=== PATIENT | female | born 1960 | race Caucasian/White ===

== ENCOUNTER 2018-12-21 14:16 | Emergency (ER) | payer OTHER, BC, SELFPAY ==
[2018-12-21 14:17] VITALS: BP 164/71; PULSE 45; RESP 18; TEMP 36.4; O2SAT 99; BMI 37.9
--- NOTE | 2018-12-21 14:45 | RAD_ITS ---
STUDY: X-RAY - LEFT HAND REASON FOR EXAM: Female, 58 years old. Swelling, bruising and laceration. TECHNIQUE: 3 view(s) of the hand. COMPARISON: None. FINDINGS: Normal radiocarpal articulation. Normal distal radioulnar joint. Normal visualized carpal bones. Normal carpal articulations Normal carpometacarpal articulation of the thumb. Normal second through fifth carpometacarpal joints. Normal metacarpi. Normal metacarpophalangeal joint of the thumb. Normal interphalangeal joint of the thumb. Normal proximal and distal phalanges of the thumb. Normal metacarpophalangeal joints of the second through fifth fingers. Normal proximal and distal interphalangeal joints of the second through fifth fingers. Normal phalanges of the second through fifth fingers. Soft tissue swelling and laceration with air in the soft tissues between the second and third metacarpals. RAD/Hand Min 3 Views IMPRESSION: Soft tissue swelling with laceration and air in the soft tissues between the second and third metacarpals. No bony abnormality is seen. Electronically Signed: Osito Richter, at 15:19 EDT , Service support ,
--- NOTE | 2018-12-21 14:47 | ED.VISSUMM ---
- ER Visit Summary Date of Service: 12/21/18 Chief Complaint: Hand injury History of Present Illness: The patient is a 58 F with a crush injury to her left hand prior to arrival this is work-related. There is no other injury. Tetanus is not up-to-date. Physical Examination: Otherwise unremarkable exam, she has no shoulder elbow or wrist pain her pain is in the dorsum and volar part of her hand, there is quite a bit of swelling over the dorsum of the hand. There is a volar laceration that about 6 cm. Patient has strength and sensation distally. Positive radial pulses normal capillary reflexes. Emergency Department Course and Treatment: Antibiotics were given IV, tetanus was updated, we soaked the wound, x-ray does not show fracture, soft tissue swelling. I sutured the laceration patient was splinted volarly, I gave her a long cover so she can hang her hand up, I will place her antibiotics and she will follow-up with hand. She understands that if she has worsening pain, tingling in her fingers, loss of sensation in her fingers fevers or chills she needs to return right away. Disposition: Discharge stable condition Impression: crush injury left hand Laceration left hand 6 cm This note was generated with [employer] dictation software. It may contain incorrect words, spelling, and punctuation that were not noted in review of the chart prior to signing ED Disposition - Plan for ED Patient: Disposition: Home or Assisted Living Instructions: ED Crush Injury Hand Fing No Fx Ch Prescriptions: Oxycodone HCl/Acetaminophen [Percocet 5/325] 1 tab PO Q6H PRN PRN 3 Days #12 tab PRN Reason: Pain Clindamycin [Cleocin] 300 mg PO 4X/DAY #80 cap Referrals: Evan Peterson MD [STAFF PHYSICIAN] - Additional Instructions: Make sure you take all your antibiotics. Make sure you follow-up with plastic surgery. If you are unable return to the emergency department within the next 3 days. Take your splint off in 2 days and change your dressing please
[2018-12-21] MEDS: Diphth,Pertuss(Acell),Tet Vac 0.5 ML Vial IM (15:17)
[2018-12-21] MEDS: HYDROmorphone 1 MG/ML Syringe IV ×2 (15:17→18:05)
[2018-12-21 16:22] VITALS: RESP 16
[2018-12-21 18:19] VITALS: PULSE 84; RESP 18; O2SAT 98
== END 2018-12-21 18:51 | disposition home or self-care (01) ==
PROVIDERS: Emergency Provider Emergency Medicine; Family Provider Internal Medicine; PCP Internal Medicine
DX: S61.412A Laceration without foreign body of left hand, initial encounter (principal); Z23 Encounter for immunization; I10 Essential (primary) hypertension; Z79.82 Long term (current) use of aspirin; Z79.899 Other long term (current) drug therapy; X58.XXXA Exposure to other specified factors, initial encounter; Y93.89 Activity, other specified; Y92.89 Other specified places as the place of occurrence of the external cause; Y99.0 Civilian activity done for income or pay
CPT/HCPCS: 12002; 73130; 90715; 96365; 96375; 96376; 99285; J7040; A4216

== ENCOUNTER 2019-02-07 15:30 | Outpatient (RCR) | payer OTHER, SELFPAY ==
[2018-12-25 16:12] VITALS: BMI 38.5
[2019-01-03 16:11] VITALS: BMI 38.5
--- NOTE | 2019-01-09 09:21 | HP.OTEVAL_ITS ---
Patient's Visit Information MAKI KOLB is a 58 year old F, referred to Occupational Therapy by Evan Peterson MD, with a diagnosis of left hand crush injury. Date of Evaluation: 01/08/19 Occupational Therapist: Vonnie Goel, EVA/Ce, CHT - Subjective Subjective: This 58 year old female was seen for initial OT eval on . Pt states on 12/21/18 she suffered a left handcrush injury laceration left palm that she sustained at work at [employer]. X-ray was negative for fracture. In the ER pt states the laceration was suture. Her range of motion was intact and there were no sensory deficits. She presents today for further evaluation and treatment. 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 Patient is right hand dominant. 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 pt states she is having difficulty with making a fist and one painful spot in the palm of her hand. - Pain left hand 3 Pain Intensity Range: 0, 6 - ROM ROM Comments: left MCP of IF 65 PIP 80 DIP 40 right MCP 70 PIP 105 DIP 55. left MCP of MF 70 pip 70 DIP 40 right MCP 75 PIP 105 DIP 55. 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 Pt will demo an increase in lateral and tripod pinch by 4# to increase pts independent with opening baggies, containers at PLOF by D/C. Goal:: Pt will demo the ability to form a composite fist indicating full gain of digit MCP, PIP and DIP flexion to return to performing BADLs and IADLS at PLOF by d/c. Goal:: Pt will report pain no greater than 1/10 with use of affected hand with BADLs and IADLs by d/c. Goal:: pt demo with scar hypersensitivity limiting ind. use of left hand for daily occupation, pt will demo understanding of desensitization by end of 2nd session to decrease sesitivity and return to use at [facility]. - Rehabilitation General Assessment: Pt presents with limited ability to form a composite fist, left hand weakness and decreased ind. with use of left hand with ADLs, IADLs and work tasks. Pt would benefit from skilled OT services 2-3 xweek for 4 weeks to ensure full gains in pts ROM and return of her strength. Today pt was ed. and given handouts on ROM, scar mtg, and desensitization. pt demo understanding and agree to POC. Rehabilitation Potential: Good - Anticipated Interventions Anticipated Interventions: A/AAROM/PROM, Strengthening, Scar Care, Triggerpoint Release, Desensitization, Modalities, Joint Protection/Energy Conservation, Ergonomic Education - Visit Plan Frequency: 2-3x /Week Duration: 4 Weeks TEXT: Thank you for the opportunity to evaluate your patient. For Medicare and Medicare HMO plans, please review the plan of care and approve it. It will need to be FAXED BACK to us at [phone] for Medicare purposes. Please let me know if there are questions or concerns regarding this plan of care. Physician Signature: Date:
--- NOTE | 2019-04-17 10:04 | HP.OT.NRP ---
HP - Discharge Summary - Patient Information MAKI KOLB was seen in my office for initial evaluation on 01/08/19. The following Plan of Care was established for this patient: Initial Frequency: 2-3x /Week Initial Duration: 4 Weeks Plan: cont with PRE check ROM and strength - Anticipated Interventions Anticipated Interventions: A/AAROM/PROM, Strengthening, Scar Care, Triggerpoint Release, Desensitization, Modalities, Joint Protection/Energy Conservation, Ergonomic Education This patient was last seen in our office 02/07/19. Pertinent comments regarding their Occupational therapy will appear below: pt was seen for 3 OT visits- pt returns with new order- therapy d/c this chart At this point I will be discontinuing this patient from occupational therapy. I would be happy to see this patient again in the future if found appropriate by the physician. Thank you! Vonnie Goel, OTR/L, CHT
== END 2019-02-07 19:00 | disposition home or self-care (01) ==
LOC: OT 15:30
PROVIDERS: Family Provider Internal Medicine; PCP Internal Medicine; Referring Provider Surgery; Visit Provider Surgery
DX: S61.412D Laceration without foreign body of left hand, subsequent encounter (principal); S67.22XD Crushing injury of left hand, subsequent encounter; M79.89 Other specified soft tissue disorders
CPT/HCPCS: 97035; 97110; 97140; 97166; 97530

== ENCOUNTER 2019-02-12 12:09 | Emergency (ER) | payer OTHER, BC, SELFPAY ==
[2019-01-18 16:19] VITALS: BMI 38.5
[2019-02-12 12:12] VITALS: BP 156/95; PULSE 60; RESP 16; TEMP 36.6; O2SAT 97; BMI 38.0
--- NOTE | 2019-02-12 12:28 | ED.VIS.GEN ---
History of Present Illness Chief Complaint: Upper Extremity Injury Informant: Patient Onset: Today Timing: Continuous Current Severity: Moderate Maximum Severity: Moderate Narrative: Patient presents with left hand injury after crush injury at work. I saw this patient for similar symptoms a month and a half ago. She was working on a machine and sustained a crush injury he denies any other injury. Pain is mild to moderate achy, she sustained a laceration. Past Medical History - Allergies and Home Meds Allergies/Adverse Reactions: Allergies bacitracin Allergy (Verified 02/12/19 12:11) Hives ondansetron HCl [From Zofran (as hydrochloride)] Allergy (Verified 02/12/19 12:11) Other povidone-iodine [From Betadine] Allergy (Verified 02/12/19 12:11) Hives soap [From Betadine] Allergy (Verified 02/12/19 12:11) Hives ciprofloxacin Adverse Reaction (Severe, Verified 02/12/19 12:11) Vomiting promethazine [From Phenergan] Adverse Reaction (Severe, Verified 02/12/19 12:11) Vomiting cephalexin monohydrate [From Keflex] Adverse Reaction (Verified 02/12/19 12:11) Nausea morphine Adverse Reaction (Verified 02/12/19 12:11) Vomiting Penicillins Adverse Reaction (Verified 02/12/19 12:11) Vomiting Primary Care Physician: Wendy Amaro MD [Primary Care Provider] - Past Medical History: - - Depression, anxiety, insomnia, neuropathy Smoking Status: Former smoker Review of Systems General: Denies: Fever Skin: Reports: Wounds Neurological: Denies: Weakness, Parasthesia Hematologic: Denies: Easy bruising, Easy bleeding Physical Exam Vital Signs/Narrative: Vital Signs Temp Pulse Resp BP Pulse Ox 02/12/19 12:12 97.8 F 60 26 H 156/95 H 97 Inital Vital Signs reviewed: Yes General: Well nourished, Well developed Head: Normocephalic Respiratory: No distress Back: Nontender, Normal Inspection Extremities: - - There is tenderness and swelling over the third and fourth digit, a 6 cm vertical laceration over the side of the third digit is present. Normal tendon function. Normal flexion extension. No significant edema. Skin: - - Laceration as above Neurological: Alert, Normal Sensation. Negative for: Weakness Diagnostic/Tx/Re-eval Impressions Hand X-Ray 02/12/19 12:45 IMPRESSION: Nondisplaced fractures involving the distal aspect of the distal phalanx of the index finger as well as the middle phalanx and distal phalanx of the third digit with soft tissue swelling and laceration. Electronically Signed: Osito Richter, at 13:04 EDT , Service support , 02/12/19 12:45 Hand Min 3 Views [RAD] Stat - Medical Decision Making I discussed the patient with plastics, she has an open fracture, this was sutured see procedure note a splint was placed. Patient will be given antibiotics and followed up in 1 to 2 days. It is difficult for me to establish if the flexor function is fully intact. Procedures - Lacerations No standard instances Depth: Skin Shape: Linear Prep: Sterile Conditions, Esther-Nabor Laceration repair: Lidocaine, Local Number of Sutures/Wes: 4 Suture Information: 5-0 - Lower Extremity Splints Lower Extremity Splint: Orthoglass Splint Fabrication: Pre-fabricated Location: Right ED Disposition - Plan for ED Patient: Disposition: Home or Assisted Living Diagnosis: Laceration of left palm, Open fracture Instructions: FRACTURE, Finger (Open) Prescriptions: Clindamycin [Cleocin] 300 mg PO 4X/DAY #80 cap Prescription Printed Oxycodone HCl/Acetaminophen [Percocet 5/325] 1 tab PO Q6H PRN PRN 3 Days #12 tab PRN Reason: Pain Prescription Printed Referrals: Evan Peterson MD [STAFF PHYSICIAN] - 2 Days
[2019-02-12] MEDS: oxyCODONE 5 MG Tablet PO (12:35)
--- NOTE | 2019-02-12 12:45 | RAD_ITS ---
STUDY: X-RAY - LEFT HAND REASON FOR EXAM: Female, 58 years old. Lacerations of the second third and fourth digits. TECHNIQUE: 3 view(s) of the hand. COMPARISON: None. FINDINGS: Normal radiocarpal articulation. Normal distal radioulnar joint. Normal visualized carpal bones. Normal carpal articulations Normal carpometacarpal articulation of the thumb. Normal second through fifth carpometacarpal joints. Normal metacarpi. Normal metacarpophalangeal joint of the thumb. Normal interphalangeal joint of the thumb. Normal proximal and distal phalanges of the thumb. Normal metacarpophalangeal joints of the second through fifth fingers. Normal proximal and distal interphalangeal joints of the second through fifth fingers. Nondisplaced comminuted fractures involving the distal pharynx of the index finger. Nondisplaced vertical fracture through the middle phalanx of the third digit as well as a fracture through the tuft of the distal phalanx of the fourth digit. Soft tissue lacerations of the second and third digits. RAD/Hand Min 3 Views IMPRESSION: Nondisplaced fractures involving the distal aspect of the distal phalanx of the index finger as well as the middle phalanx and distal phalanx of the third digit with soft tissue swelling and laceration. Electronically Signed: Osito Richter, at 13:04 EDT , Service support ,
[2019-02-12 14:10] VITALS: RESP 18
== END 2019-02-12 15:32 | disposition home or self-care (01) ==
PROVIDERS: Emergency Provider Emergency Medicine; Family Provider Internal Medicine; PCP Internal Medicine
DX: S62.662B Nondisplaced fracture of distal phalanx of right middle finger, initial encounter for open fracture (principal); S62.652B Nondisplaced fracture of middle phalanx of right middle finger, initial encounter for open fracture; S62.660A Nondisplaced fracture of distal phalanx of right index finger, initial encounter for closed fracture; Z87.891 Personal history of nicotine dependence; F32.9 Major depressive disorder, single episode, unspecified; F41.9 Anxiety disorder, unspecified; Z79.899 Other long term (current) drug therapy; W31.9XXA Contact with unspecified machinery, initial encounter; Y93.89 Activity, other specified; Y92.89 Other specified places as the place of occurrence of the external cause; Y99.0 Civilian activity done for income or pay
CPT/HCPCS: 12002; 73130; 96372; 99284

== ENCOUNTER 2019-02-16 10:20 | Day surgery (SDC) | payer OTHER, SELFPAY ==
[2019-02-14 10:04] VITALS: BMI 38.0
--- NOTE | 2019-02-15 23:54 | HP.PCM_ITS ---
History and Physical Date of Admission: 02/16/19 HISTORY OF PRESENT ILLNESS 58 year old woman presented to the ED on 02/12/19 with a crush injury left hand that she sustained at work at [employer]. This is her second crush injury at work. The first one occurred on 12/21/18. She was able to return to work on 01/22/19. When she went to ED on 02/12/19, an x-ray showed nondisplaced fractures involving the distal aspect of the distal phalanx of the index finger as well as the middle phalanx and distal phalanx of the third digit with soft tissue swelling and laceration. There was a longitudinal laceration on the volar surface long finger that was cleansed and suture repaired. Her range of motion in her index finger and long finger were limited secondary to pain and swelling. She complains of some tingling in the long finger. Her fingers were wrapped and the left hand was splinted. She was discharged home on Cleocin antibiotics and Percocet for pain. She presents today for further evaluation and treatment. Patient is right hand dominant. PAST MEDICAL HISTORY Anxiety and depression Arthritis Asthma Back problem Frequent headaches Osteoarthritis Vision problems High blood pressure PAST SURGICAL HISTORY hysterectomy ALLERGIES bacitracin ondansetron HCl [From Zofran (as hydrochloride)] povidone-iodine [From Betadine] soap [From Betadine] ciprofloxacin promethazine [From Phenergan] cephalexin monohydrate [From Keflex] morphine Penicillins MEDICATIONS Aspirin [Aspirin, Baby] Citalopram [Celexa] Gabapentin [Neurontin] Metoprolol Tartrate [Lopressor (Beta Roberto)] Pramipexole Di-HCl [Mirapex] Quetiapine Fumarate [Seroquel] Meclizine HCl [Antivert] Clindamycin [Cleocin] Naproxen [Naprosyn] Oxycodone HCl/Acetaminophen [Percocet 5/325] traZODone [Desyrel] oxycodone-acetaminophen FAMILY HISTORY Father - Arthritis, Hypertension, Kidney disease, Seizures, CVA (cerebral vascular accident), Heart disease SOCIAL HISTORY Smoking Status: Former smoker alcohol intake: current substance use type: does not use REVIEW OF SYSTEMS General - Denies fever, fatigue, and weight loss. Eyes - Denies cataracts and glaucoma. ENT - Denies nasal congestion and sore throat. Endocrine - Denies excessive thirst and urination. Skin - Denies suspicious lesions and skin cancer. Has bruising tendency. Musculoskeletal - Has joint pain, joint stiffness, back pain, and arthritis. Denies weakness of muscles and joints. Neuro - Has headaches. Cardiovascular - Denies chest pain, fatigue, and shortness of breath with exertion. Psych - Denies anxiety. Has depression. Has claustrophobia. Respiratory - Denies chronic cough and shortness of breath. Has asthma. Gastrointestinal - Denies nausea, vomiting, diarrhea, and constipation. Hematologic - Denies abnormal bruising and bleeding. Genitourinary - Denies hematuria and urinary frequency. PHYSICAL EXAMINATION General - Alert and Oriented HEENT - PERRL. EOMI. Throat is clear. Neck - Supple and nontender. No cervical adenopathy. Lungs - Clear to auscultation. Heart - Regular rate and rhythm. Abdomen - Soft and nondistended. Extremities - FROM right upper extremity. No axillary adenopathy. Radial pulses are palpable. Fingers are warm with good capillary refill. She is right hand dominant. On the left hand was a 5 cm longitudinal laceration on the volar radial aspect of the long finger extending from the distal phalanx to just proximal to the PIP joint crease. It was suture repaired. Tenderness to palpation. Mild swelling present. Has difficulty flexing the long finger at the DIP and PIP joints secondary to pain and swelling and recent bone fractures. This is an open fracture. Also has difficulty flexing the index finger at the DIP and PIP joints secondary to pain and swelling and recent bone fracture. There was a wound at the base of the nail plate in the eponychial fold thus making this an open fracture. On the dorsum of the left long finger extending obliquely toward the radial side of the finger is a superficial laceration. Measures 1.5 cm. It was not suture repaired in the ED. Some sensory deficits to pinprick on the left long finger. No sensory deficits noted on the left index finger. Extension is limited secondary to pain and swelling. Palm is nontender. Neuro - CN II-XII grossly intact. Psych - Normal mood and affect. ASSESSMENT 1. Crush injury left hand. 2. 5 cm longitudinal laceration volar radial aspect long finger extending from the distal phalanx to just proximal to the PIP joint crease. 3. Superficial 1.5 cm laceration dorsum left long finger just proximal to the eponychial fold and extending obliquely and radial. 4. Nondisplaced open fracture left long finger involving distal phalanx and middle phalanx. 5. Nondisplaced open fracture left index finger involving distal phalanx. 6. Possible digital nerve injury left long finger. 7. Possible flexor tendon injury left long finger. 8. Nail bed injury left index finger. 9. Finger swelling left hand involving long finger and index finger. 10. Crush injury left hand. PLAN Continue antibiotics with Cleocin. At the time of surgery, may change to Doxycy lang because of risk of osteomyelitis. Recommend operative intervention with exploration of the laceration left long finger and the nail bed injury left index finger. Suspect flexor tendon injury, digital nerve injury along with associated nondisplaced fractures distal phalanx and middle phalanx left long finger and distal phalanx left index finger. If injuries are present, I may need to extend the wound in a zig zag fashion both proximally and distally. With the longitudinal nature of the wound, she is at risk of developing a scar contracture that may necessitate surgical preparation of the long finger with excision of the scar contracture with multiple z-plasty and/or skin graft reconstruction. Suspect a nail bed injury left index finger that will be repaired. I will have access to the distal phalanx fracture which involves the distal portion of the bone. Excision of these fracture fragments and sent to Pathology for analysis to rule out osteomyelitis and to Microbiology for culture. A positive culture may necessitate antibiotic therapy. I should be able to have acces to the distal phalanx fracture of the long finger as well. Will excise these fracture fragments as well to evaluate for osteomyelitis. Leaving the bony fragments, increases the risk of developing chronic bone pain in the future that may necessitate excision at that time and possible tip amputation. Postoperatively, will have the fingers and hand splinted. Will also followup at OT for a silastic splint and after healing has occurred, range of motion exercises, strengthening, and edema management. For the bony fractures, especially the middle phalanx fracture, ORIF may be necessary with Kwire fixation or possibly plate and screw fixation. Surgery will be done under general anesthesia on an outpatient basis. Depending on the amount of pain she is having after surgery, she may need a surgical observation overnight stay in the hospital. Will schedule the surgery in the next 1-2 days. Keep left hand elevated. This complex injury occurred on 02/12/19. She did not go to work yesterday. Due to its complexity, she needs to be off work with total disability beginning the day of injury, 02/12/19, and extending to 05/08/19 (tentative). With the surgery taking place in the next 1-2 days, coupled with adequately healing and subsequent OT for range of motion exercises, strengthening, and edema manage ment, her recovery will be prolonged. 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 She will not go back to those machines. At the appropriate time, she will need to find alternate work within the company that doesn't involve machinery. Patient was informed of the risks and complications of the procedure including alternatives to surgery. These were discussed with the patient personally. Patient voices understanding and wishes to proceed. Some of the risks and complications were included in a form from the [employer]. Some of the risks and complications that were discussed included but were not inclusive of failure to diagnose including symptom relief, pain, infection, numbness, stiffness, loss of digit, RSD (CRPS), need for further surgery, contracture, and wound healing problems. I discussed with the patient that because this is a crush injury, sometimes problems occur later on down the road in 6-12 months such as stiffness, pain, swelling, and range of motion issues that may necessitate operative intervention and release of scar tissue such as tenolysis and/or neurolysis. She voices understanding. She also understands that depending on the healing, she may end up eventually with an amputation of her finger(s). Renewed her Percocet for pain (30 tabs), to be dispensed 02/15/19. Followup after her surgery.
--- NOTE | 2019-02-16 10:33 | EKG12_ITS ---
Test Reason : PREOP Blood Pressure : / mmHG Vent. Rate : 054 BPM Atrial Rate : 054 BPM P-R Int : 144 ms QRS Dur : 086 ms QT Int : 460 ms P-R-T Axes : 041 -01 -06 degrees QTc Int : 436 ms Sinus bradycardia Otherwise normal ECG When compared with ECG of 16-JUL-2015 12:59, Premature ventricular complexes are no longer Present Inverted T waves have replaced nonspecific T wave abnormality in Inferior leads Nonspecific T wave abnormality now evident in Anterior leads Confirmed by AKSHAT STOUT, AYLA ([id number]), dictionary editor ROSALIND PERALES ([id number]) on 02/23/2019 2:06:31 PM Referred By: Evan Peterson Confirmed By:ANDRIA ODEN MD
[2019-02-16 10:42] VITALS: BP 138/82; PULSE 56; RESP 16; TEMP 36.4; O2SAT 99; BMI 37.8
--- NOTE | 2019-02-16 14:00 | BON_PTH ---
PATIENT: MAKI KOLB LOC: [facility] [place] U#:[id number] AGE/SX: 58/F ROOM: RE02/16/[address]: Dr. Evan Peterson MD : 1960 BED: DIS: 02/16/2019 SPEC #: [id number] RECD: 02/16/19 16:08 STATUS: LU LEIGHTON #: [id number] REYNALDO: 02/16/19 14:[address]: Evan Peterson DEPT: SURGICAL PATHOLOGY RECD BY: José Miguel Reyes ENTERED: 02/19/19 08:46 SP TYPE: Bone OTHR DR: Dr. Wendy Amaro MD Tissues: A - Bone of hand, NOS B - Bone of hand, NOS Procedures: Decalcification bone/plaque Surgery Specimen Level IV HEADER OPERATION: Exploration laceration long finger, complex closure repair PRE-OP DIAGNOSIS: Crush injury left hand TISSUE SUBMITTED: A. Left long finger bone, B. Left index finger bone MICROSCOPIC DIAGNOSIS A. 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 See comment. B. Left index finger bone, biopsy: Reparative and reactive change. See comment. AM:aurora 02/22/19 COMMENT A & B. There is no evidence of osteomyelitis. Clinical correlation is suggested. MICROSCOPIC DESCRIPTION Slides are reviewed. GROSS DESCRIPTION A - Received in fixative is one container labeled with the patient's name and designated left long finger bone. The specimen consists of a piece of bone measuring 0.5 x 0.4 x 0.3 cm. The entire specimen is submitted in one cassette after decalcification. B - Received in fixative is one container labeled with the patient's name and designated left index finger bone. The specimen consists of two pieces of bone measuring in aggregate 1 x 0.7 x 0.4 cm. The entire specimen is submitted in one cassette after decalcification. / SJ:aurora 02/19/19 TC:5 CPT: 75971 x2, 96731 x2
[2019-02-16] MEDS: Mupirocin Ointment 22gm Tube 1 APPLIC (15:03)
[2019-02-16 15:16] VITALS: BP 121/62; BP 138/83; PULSE 60; RESP 16; TEMP 36.3; O2SAT 95
--- NOTE | 2019-02-16 15:27 | OP.PCM_ITS ---
Report of Operation Date of Procedure: 02/16/19 Pre-Operative Diagnosis: 1. Crush injury left hand. 2. 5 cm longitudinal laceration volar radial aspect long finger extending from the distal phalanx to just proximal to the PIP joint crease. 3. Superficial 1.5 cm laceration dorsum left long finger just proximal to the eponychial fold and extending obliquely and radial. 4. Nondisplaced open fracture left long finger involving distal phalanx and middle phalanx. 5. Nondisplaced open fracture left index finger involving distal phalanx. 6. Possible digital nerve injury left long finger. 7. Possible flexor tendon injury left long finger. 8. Nail bed injury left index finger. 9. Finger swelling left hand involving long finger and index finger. Post-Operative Diagnosis: 1. Crush injury left hand. 2. 5 cm longitudinal laceration volar radial aspect long finger extending from the distal phalanx to just proximal to the PIP joint crease. 3. 1.5 cm laceration dorsum left long finger just proximal to the eponychial fold and extending obliquely and radial. 4. Nondisplaced open fracture left long finger involving distal phalanx and middle phalanx. 5. Nondisplaced open fracture left index finger involving distal phalanx. 6. Nail bed injury left index finger. 7. Finger swelling left hand involving long finger and index finger. Surgery/Procedure Performed:: 1. Exploration 5 cm longitudinal laceration volar radial aspect left long finger extending from the distal phalanx to just proximal to the PIP joint crease with 4.5 cm complex closure repair and FTSG reconstruction from the volar ulnar forearm (2.5 cm2). 2. Exploration 1.5 cm laceration dorsum left long finger just proximal to the eponychial fold and extending obliquely and radial with 3.5 cm complex closure repair. 3. Excisional debridement open fracture distal phalanx tuft left long finger with partial ostectomy for osteomyelitis. 4. Treatment nondisplaced stable longitudinal open fracture middle phalanx left long finger without manipulation and with volar immobilization splinting. 5. Excisional debridement open fracture distal phalanx tuft left index finger with partial ostectomy for osteomyelitis. 6. Repair nail bed injury left index finger. Description of Surgical Findings:: 58 year old woman presented to the ED on 02/12/19 with a crush injury left hand that she sustained at work at [employer]. This is her second crush injury at work. The first one occurred on 12/21/18. She was able to return to work on 01/22/19. When she went to ED on 02/12/19, an x-ray showed nondisplaced fractures involving the distal aspect of the distal phalanx of the index finger as well as the middle phalanx and distal phalanx of the third digit with soft tissue swelling and laceration. There was a longitudinal laceration on the volar surface long finger that was cleansed and suture repaired. Her range of motion in her index finger and long finger were limited secondary to pain and swelling. She complains of some tingling in the long finger. Her fingers were wrapped and the left hand was splinted. She was discharged home on Cleocin antibiotics and Percocet for pain. Patient is right hand dominant. Patient was informed of the risks and complications of the procedure including alternatives to surgery. These were discussed with the patient personally. Patient voices understanding and wishes to proceed. Some of the risks and complications were included in a form from the [employer]. Some of the risks and complications that were discussed included but were not inclusive of failure to diagnose including symptom relief, pain, infection, numbness, stiffness, loss of digit, RSD (CRPS), need for further surgery, contracture, and wound healing problems. Total tourniquet time - 109 minutes. Size of skin graft volar aspect left long finger - 2.5 x 1 cm. The flexor tendons left long finger were intact. The extensor tendon left long finger was intact. The digital nerves left long finger were intact. abrading machine tender: None Type of Anesthesia:: General Specimen's removed: 1. Soft tissue left index finger to Microbiology. 2. Bone left index finger to Pathology and Microbiology. 3. Soft tissue left long finger to Microbiology. 4. Bone left long finger to Pathology and Microbiology. Drains: None. Estimated Blood Loss (mL): 50 ml. Description of Procedure: Patient was taken to OR in supine position and was placed under general anes thesia. The left upper extremity was prepped and draped in the usual fashion. SCD's were placed for DVT prophylaxis. Perioperative antibiotics were given intravenously. I then elevated the left upper extremity and applied an Esmarch bandage. The tourniquet was elevated to 250 mmHg. Using xylocaine with epinephrine, a digital metacarpal block was infiltrated to both the index and long fingers. After waiting 5 minutes for the anesthetic to take effect, I explored the injuries under loupe magnification. I extended the lacerations on the volar surface and dorsal surface of the left long finger in a zig zag fashion both proximally and distally to get exposure of the tendons and nerves. The flexor tendons were intact. The extensor tendon was intact. The digital nerves were dissected free and were intact. Clinically the nondisplaced longitudinal fracture middle phalanx was stable when I applied pressure to the bone. No manipulation was necessary to reduce the fracture. Will stabilize the fracture with volar immobilization splinting at the end of the procedure. The distal phalanx fracture had loose fragments in the tuft area. The proximal portion of the distal phalanx was intact as the tendon insertions were intact. I sharply debrided the bony fragments with a partial ostectomy. I will send some of the bone to Pathology to evaluate for osteomyelitis and to Microbiology for culture. A positive culture will necessitate antibiotic therapy. The wounds were irrigated with saline. I then explored the left index finger. The injury was in the eponychial area. I removed the nail plate with an elevator. There was bruising on the nail bed with an associated nail bed injury. I made a longitudinal incision along the paronychial fold and elevated the nail bed flap off the distal phalanx. The proximal portion of the distal phalanx was intact as the tendon insertions were intact. The distal phalanx fracture had loose fragments in the tuft area. I thought the fragments were large enough for stabilization with a K-wire. So I used C-arm and tried placing a size 0.035 in K-wire longitudinally to stabilize the fracture fragment of the distal phalanx. The wire went through the DIP joint for joint stabilization during the healing process. When I viewed the image on the C-arm it was difficult to get a piece of middle phalanx to stabilize the DIP joint. When I tried to manipulate the K- wire in order to get the K-wire to enter the middle phalanx more centrally, the bony stabilization of the distal phalanx tuft fracture was suboptimal. The fragment was too small to get a good enough purchase of the bone to stabilize it and enter the middle phalanx centrally for joint stabilization. Therefore it was decided to forget the K-wire fixation and just debride the bony fragments as I did with the long finger distal phalanx tuft fracture. I dissected the bony fragments free and sharply debrided the bony fragments with a partial ostectomy. Some of the bone was sent to Pathology to evaluate for osteomyelitis and to Microbiology for culture. A positive culture will necessitate antibiotic therapy. The wounds were irrigated with saline. I then repaired the nail bed injury left index finger with 6-0 Vicryl interrupted sutures. I placed the nail plate back on the left index finger over the nail bed repair and secured the nail plate to the paronychial and eponychial and hyponychial edges with 5-0 Nylon simple interrupted sutures. I then released the tourniquet after 109 minutes. Hemostasis was obtained with gauze compression and elevation and electrocautery. I then closed the lacerations on the volar aspect and dorsal aspect of the left long finger with 5-0 Nylon vertical mattress interrupted and simple interrupted sutures. The length of the complex closure repair on the dorsal aspect of the left long finger was 3.5 cm. I could not close the laceration completely on the volar aspect of the left long finger because of swelling from the severe nature of the crush injury. I was able to close the proximal end and the distal end with 5-0 Nylon vertical mattress interrupted and simple interrupted sutures. The length of the complex closure repair on the volar aspect of the left long finger was 4.5 cm. The central aspect of the incision had a resultant wound that measures 2.5 x 1 cm or 2.5 cm2. I decided to skin graft this area by drawing a longitudinal ellipse on the volar ulnar forearm. Incision was made and dissection was carried into the subcutaneous tissue. I removed the subcutaneous tissue from the undersurface of the skin graft thus making it a full thickness skin graft. The skin graft was placed in saline. I excised some more subcutaneous tissue in the donor wound to aid in wound closure. Hemostasis was obtained with electrocautery. I closed the donor incision in a layered fashion with 5-0 Monocryl interrupted sutures for the deep dermis and subcutaneous tissue. The skin was approximated with 5-0 Nylon simple interrupted sutures. Antibiotic ointment was applied to the suture line followed by a gauze dressing. The full thickness skin graft was then placed on the wound defect volar aspect left long finger. It was secured to the skin edges with 5-0 Chromic simple interrupted sutures. 5-0 Chromic sutures were also used for central quilting stabilization. Antibiotic ointment was applied to the skin graft and the suture lines of the left long finger as well as the nail plate area left index finger followed by Xeroform gauze and 2x2 gauze followed by 2 inch Robert wrap for a compression dressing. I then placed a volar plaster splint to stabilize the middle phalanx nondisplaced fracture left long finger. The splint was placed so the wrist was dorsally extended and the MP joints were flexed and the IP joints were extended. The splint was secured with a compression LAUREN wrap. Patient tolerated the procedure well and was sent to PACU in satisfactory condition. Patient will be sent home on antibiotics and pain medication. She will keep her left hand elevated during the initial postop period. Patient will followup in a week for a skin graft check and wound check and for discussion of the Pathology report and the Microbiology report. A positive culture may necessitate antibiotic modification. The sutures will be removed in 2 weeks. She will go to OT for a silastic splint and eventual range of motion exercises, strengthening, and edema management. I discussed with the patient that recovery will be prolonged and I anticipate a return to work on 05/08/19 (tentative). Grafts/Implants Used: None. - Complications None. - Admit VTE Documentation VTE Present on Admission: No VTE Mechan Device Prophylaxis: SCD's VTE Pharm Prophylaxis ordered?: Yes Code Visit Surgery Charges CPT - 06488 ICD-10 - S61.213A, M79.89, S67.193A 73613 S61.213A, M79.89, S67.193A 24634 S61.213A, M79.89, S67.193A 81885 S62.663B, M79.89, S67.193A, S61.213A 96262 S62.653B, M79.89, S67.193A, S61.213A 25102 S69.92xA, M79.89, S67.191A, S62.661B 99787 S62.661B, M79.89, S67.191A, S69.92xA
[2019-02-16 15:30] VITALS: BP 128/73; BP 138/83; PULSE 62; RESP 16; O2SAT 95
--- NOTE | 2019-02-16 15:35 | DCINST_ITS ---
You will use the following diet at home:: No restrictions Discharge Activity: May not drive while taking narcotic pain medications., May Shower - wear plastic bag over left hand when showering. Return to work on:: 05/08/19 - tentative May shower in (days): 1 - wear plastic bag over left hand when showering. May resume sexual activity in: No Restrictions Weight Bearing Status: Weight bearing as tolerated Lifting Restrictions: no lfting with left hand. Keep extremity elevated above heart level: Left Arm Call your doctor if your incision/area has: Continuous Slow Oozing, Sudden Increased Bleeding, Increased Pain/ Swelling, Increased Redness, Foul Smelling Discharge, Swelling at the incision site Call your doctor if you observe: Fever of 101 or Higher, Coldness, Increased Pain, Shortness of breath, Chest pain, Calf discomfort, Uncontrolled pain Suture Line Care: - Change Dressing in (Days):: 7 - will change dressing in office. Cleanse incision/area with: - - wear plastic bag over left hand when showering. Additional Instructions: Patient has Clindamycin and Percocet at home that she will use. Allergies/Adverse Reactions: Allergies bacitracin Allergy (Verified 02/16/19 10:40) Hives latex Allergy (Verified 02/16/19 10:40) Rash povidone-iodine [From Betadine] Allergy (Verified 02/16/19 10:40) Hives soap [From Betadine] Allergy (Verified 02/16/19 10:40) Hives ciprofloxacin Adverse Reaction (Severe, Verified 02/16/19 10:40) Vomiting promethazine [From Phenergan] Adverse Reaction (Severe, Verified 02/16/19 10:40) Vomiting cephalexin monohydrate [From Keflex] Adverse Reaction (Verified 02/16/19 10:40) Nausea morphine Adverse Reaction (Verified 02/16/19 10:40) Vomiting Penicillins Adverse Reaction (Verified 02/16/19 10:40) Vomiting Medications to take at Discharge Citalopram [Celexa] 20 mg PO DAILY 07/06/15 Gabapentin [Neurontin] 800 mg PO DAILY 02/08/16 Metoprolol Tartrate [Lopressor (beta dino)] 25 mg PO DAILY 02/08/16 Pramipexole Di-HCl [Mirapex] 0.25 mg PO BID 02/08/16 Quetiapine Fumarate [Seroquel] 25 mg PO QHS PRN 02/08/16 Meclizine HCl [Antivert] 12.5 mg PO DAILY PRN PRN 12/21/18 Clindamycin [Cleocin] 300 mg PO 4X/DAY #80 cap 02/12/19 Oxycodone HCl/Acetaminophen [Percocet 5-325] 1 tab PO Q6H PRN PRN 3 Days #12 tab 02/12/19 traZODone [Desyrel] 100 mg PO QHS PRN 02/12/19 Primary Care Physician: Wendy Amaro MD [Primary Care Provider] - Test Results: Test results from this visit will be discussed in further detail at your follow- up appointment, if applicable. Please Follow Up With: Evan Peterson MD When: one week. call [phone] for appt. Proposed Discharge Date: 02/16/19
[2019-02-16 15:45] VITALS: BP 113/74; BP 138/83; PULSE 54; RESP 16; O2SAT 95
[2019-02-16 15:57] VITALS: BP 138/83; PULSE 57; RESP 16; TEMP 36.3; O2SAT 93
[2019-02-16] MEDS: oxyCODONE 5 MG Tablet 10 MG PO (16:41)
[2019-02-16] MEDS: Enoxaparin 30 MG/0.3 ML Syringe SC (16:42)
[2019-02-16 17:11] VITALS: BP 124/65; BP 138/83; PULSE 64; RESP 16; TEMP 36.4; O2SAT 94
== END 2019-02-16 17:19 | disposition home or self-care (01) ==
LOC: SDC 10:21 → AC 10:23
PROVIDERS: Family Provider Internal Medicine; PCP Internal Medicine; Referring Provider Surgery; Visit Provider Surgery
PROC: (CPT 11760; principal; 2019-02-16 13:45)
DX: M87.245 Osteonecrosis due to previous trauma, left finger(s) (principal); S62.661B Nondisplaced fracture of distal phalanx of left index finger, initial encounter for open fracture; S62.663B Nondisplaced fracture of distal phalanx of left middle finger, initial encounter for open fracture; F41.9 Anxiety disorder, unspecified; F32.9 Major depressive disorder, single episode, unspecified; M19.90 Unspecified osteoarthritis, unspecified site; J45.909 Unspecified asthma, uncomplicated; I10 Essential (primary) hypertension; K21.9 Gastro-esophageal reflux disease without esophagitis; G25.81 Restless legs syndrome; Z79.82 Long term (current) use of aspirin; Z79.899 Other long term (current) drug therapy; Z87.891 Personal history of nicotine dependence; X58.XXXA Exposure to other specified factors, initial encounter; Y93.89 Activity, other specified; Y92.89 Other specified places as the place of occurrence of the external cause; Y99.0 Civilian activity done for income or pay
CPT/HCPCS: 11760; 15240; 26236 ×2; 76000; 87070; 87075; 87077; 87102; 87106; 87176; 87186; 87205; 87206; 88304; 88305; 88311; 93005; J7120; J2405

== ENCOUNTER 2019-02-20 12:55 | Inpatient (IN) | payer OTHER, SELFPAY ==
[2019-02-20 13:11] VITALS: BMI 37.2
[2019-02-20 13:30] VITALS: BP 138/74; PULSE 62; RESP 18; TEMP 37.1; O2SAT 95
[2019-02-20] MEDS: Ondansetron 4 MG/2 ML Vial IV (14:46)
[2019-02-20] MEDS: 0.9% NaCl Peripheral Flush Adult/Peds IV (14:47)
[2019-02-20 15:19] LABS: Hematocrit 43.3 % (37-47); Hemoglobin 14.5 g/dL (12.0-15.0); Mean Corp Hgb Conc 33.5 g/dL (32-36); Mean Corpuscular Hgb 28.7 pg (27.0-32.0); Mean Corpuscular Volume 85.6 fL (81-99); Mean Platelet Vol. 9.7 fl (6.2-12.0); Platelet Count 163 K/mm3 (150-450); RBC Distribution Width CV 12.2 % (11.6-14.6); RBC Distribution Width SD 38.1 fl (35.1-43.9); Red Blood Count 5.06 M/mm3 (4.2-5.4); White Blood Count 6.3 K/mm3 (4.4-11.0)
[2019-02-20 15:22] LABS: Erythrocyte Sedimentation Rate 16 mm/hr (0-30)
[2019-02-20] MEDS: 0.9% Normal Saline 1,000 ML 100 ML IV (15:28)
--- NOTE | 2019-02-20 15:31 | PN_ITS ---
Subjective: Patient is a 58-year-old woman with a past medical history as listed. She was admitted on 02/20/2019 on account of nausea and vomiting and general weakness. Patient had surgery on her left index finger 6 days ago for workplace injury- crush injury of the left hand. Surgery was done by Dr. Peterson. Patient went home and states subsequently had loss of appetite and was having nausea which gradually worsened. Today she was called to come in for a PICC line placement by Dr. Peterson. However on arrival for the PICC line placement, patient was very nauseous and threw up 3 times. She also felt very weak and drowsy. She states that she took her gabapentin this morning but did not take any pain meds. She has been taking oxycodone at home as needed but states pain was tolerable so she had not been taking much pain medication. She denied any fever or chills, palpitations or dizziness, abdominal pain or diarrhea. Review of systems otherwise negative. Hospitalist service was consulted to help with medical management. Vitals/I&O's: Vital Signs Temp Pulse Resp BP Pulse Ox 98.8 F 62 18 138/74 H 95 02/20/19 13:30 02/20/19 13:30 02/20/19 13:30 02/20/19 13:30 02/20/19 13:30 Oxygen Delivery Method Room Air Weight: 210 lb 1.608 oz Body Mass Index (BMI) 37.2 Finger Stick Blood Glucose 93 General: Alert, Oriented x3, Cooperative, No apparent distress, Lethargic HEENT: Atraumatic, PERRLA, EOMI, Normocephalic Oral: Dry Mucosa Neck: Supple, No JVD, Negative Carotid Bruits Lungs: Clear to auscultation, Normal air movement, No rhonchi, No wheeze Cardiovascular: Regular rate, Regular Rhythm, Normal S1, Normal S2, No murmurs Abdomen: Bowel Sounds Present, Soft, Non Tender, Non-Distended, No Hepato- splenomegaly Extremities: No clubbing, No cyanosis, No edema, Capillary Refill Less than 3 Seconds Skin: - - left hand wrapped in bandage Musculoskeletal: No Tenderness to Palpation of Joints or Extremities, - - LUE examination as under skin Lymphatic: No Cervical, Supraclavicular, or Inguinal Adenopathy Neurological: Cranial nerves II-XII grossly intact Psych/Mental Status: Normal Affect, - - drowsy, Alert and oriented to time, place, person, mood and affect Laboratory Results 02/20/19 14:59: WBC 6.3, RBC 5.06, Hgb 14.5, Hct 43.3, MCV 85.6, MCH 28.7, MCHC 33.5, RDW Std Deviation 38.1, RDW Coeff of [place] 12.2, Plt Count 163, MPV 9.7, ESR 16 02/20/19 14:59: Sodium Pending, Potassium Pending, Chloride Pending, Carbon Dioxide Pending, Anion Gap Pending, BUN Pending, Creatinine Pending, Est GFR (MDRD) Af Amer Pending, Est GFR (MDRD) Non-Af Pending, BUN/Creatinine Ratio Pending, Glucose Pending, Calcium Pending, Total Bilirubin Pending, AST Pending, ALT Pending, Alkaline Phosphatase Pending, C-React Prot Ext Range Pending, Total Protein Pending, Albumin Pending Current Medications Acetaminophen (Tylenol) 650 mg PO Q6H PRN PRN PRN Reason: PAIN Citalopram Hydrobromide (Celexa) 20 mg PO DAILY [facility] Docusate Sodium (Colace) 100 mg PO BID [facility] Gabapentin (Neurontin) 800 mg PO DAILYCM [facility] Vancomycin IV Pharmacy to Dose (1 ea/ Sodium Chloride) 500 mls @ 250 mls/hr IV X1 PRN; Protocol PRN Reason: Rx to Dose Vancomycin HCl 1,500 mg/ (Sodium Chloride) 530 mls @ 250 mls/hr IV X1 ONE Stop: 02/20/19 16:52 Last Admin: 02/20/19 15:28 Dose: 250 mls/hr Documented by: Sodium Chloride () 1,000 mls @ 100 mls/hr IV .Q10H [facility] Last Admin: 02/20/19 15:28 Dose: 100 mls/hr Documented by: Meclizine HCl (Antivert) 12.5 mg PO DAILY PRN PRN PRN Reason: Vertigo Metoprolol Tartrate (Lopressor (Beta Roberto)) 25 mg PO DAILY [facility] Nutritional Formula ([place] - [place] Flavor) 1 packet PO BIDCM [facility] Ondansetron HCl (Zofran) 4 mg IV Q6H PRN PRN PRN Reason: NAUSEA Last Admin: 02/20/19 14:46 Dose: 4 mg Documented by: Oxycodone HCl (Oxyir) 10 mg PO Q4H PRN PRN PRN Reason: SEVERE PAIN (6-10) Pramipexole Dihydrochloride (Mirapex) 0.25 mg PO BID [facility] Quetiapine Fumarate (Seroquel) 25 mg PO QHS PRN PRN Reason: SLEEP Sodium Chloride () 10 - 40 ml IV UD PRN PRN Reason: SALINE FLUSH Last Admin: 02/20/19 14:47 Dose: 10 ml Documented by: Trazodone HCl (Desyrel) 100 mg PO QHS PRN PRN PRN Reason: INSOMNIA Medical Necessity - Tobacco Use Smoking Status: Former smoker Assessment/Plan All Active Problems (Last Updated 12/25/18 @ 16:06 by Jess Muro) Crushing injury of left middle finger, initial encounter (Acute) Crushing injury of left index finger, initial encounter (Acute) Injury of nail bed of finger of left hand (Acute) Finger swelling (Acute) Laceration of left middle finger without foreign body without damage to nail (Acute) Open nondisplaced fracture of distal phalanx of left index finger (Acute) Open nondisplaced fracture of distal phalanx of left middle finger (Acute) Open nondisplaced fracture of middle phalanx of left middle finger (Acute) Swelling of left hand (Resolved) Crushing injury of hand, left (Acute) Laceration of left palm (Acute) Heat exhaustion (Acute) 58-year-old female admitted with a complaint of nausea and vomiting and general lethargy. 1. Nausea and vomiting * etiology unclear. Patient says she has not been taking excessive pain meds, and says she has actually not been taking much of the pain meds she was discharged home on, as her pain is tolerable * she only took gabapentin this morning, but promptly vomited it all up * CBC was unremarkable; BNP is pending * hydrate with IVF SN @ 150cc/hr * IV zofran * keep NPO for now until vomiting improves * check orthostatics * check UA to assess for UTI 2. History of crush injury of the left index finger: * Status post surgery. Plastic surgery on board. Currently on IV vancomycin. * Wound cultures staph epidermidis. * Management as per plastic surgery. According to patient she was told she needs PICC line today for prolonged antibiotics. * 3. Hypertension: On metoprolol. 4. Depression and anxiety: On trazodone and Celexa. Also on Seroquel, though indication for Seroquel is not very clear. DVT prophylaxis: SCDs Thank you for the courtesy of the consult. We will continue to follow with you. Code Visit Inpatient E&M: 26987 Subs Hosp L2
[2019-02-20 15:45] LABS: ALB/GLOB Ratio 0.9 RATIO (0.9-2.4); AST(SGOT) 53 U/L (15-37); Alanine Aminotransfer ALT/SGPT 167 U/L (13-56); Albumin, Serum 3.4 g/dL (3.2-5.0); Alkaline Phosphatase 161 U/L (45-117); Anion Gap 5 (5-15); BUN 20 mg/dL (7-18); BUN/Creat Ratio 21.3 RATIO (10-20); Calcium,Total 9.1 mg/dL (8.5-10.1); Chloride 107 mmol/L (98-107); Creatinine, Serum 0.94 mg/dL (0.55-1.02); EST Glomerular Filtration Rate 65 mL/min (>60); Est Glom Filt Rate - Afr Amer 79 mL/min (>60); Estimated Creatinine Clearance 55.28 ml/min; Globulin 3.7 g/dL (2.2-4.2); Glucose 93 mg/dL (74-106); Potassium 3.7 mmol/L (3.5-5.1); Protein, Total 7.1 g/dL (6.4-8.2); Sodium Level 139 mmol/L (136-145)
--- NOTE | 2019-02-20 15:46 | NURSING ---
rehab rn should arrive between [id number] for PICC line placement.
--- NOTE | 2019-02-20 16:27 | PCM.RX.CS ---
Consult Pharmacy has been consulted to manage selected antiobiotic: Vancomycin Type of Consult: New start Suspected Infection: Other Labs: Sodium 139 mmol/L (136-145) 02/20/19 14:59 Potassium 3.7 mmol/L (3.5-5.1) 02/20/19 14:59 Chloride 107 mmol/L (98-107) 02/20/19 14:59 Carbon Dioxide 27.0 mmol/L (21.0-32.0) 02/20/19 14:59 5 (5-15) 02/20/19 14:59 BUN 20 mg/dL (7-18) H 02/20/19 14:59 0.94 mg/dL (0.55-1.02) 02/20/19 14:59 Est GFR (MDRD) Af Amer 79 mL/min (>60) 02/20/19 14:59 Est GFR (MDRD) Non-Af 65 mL/min (>60) 02/20/19 14:59 21.3 RATIO (10-20) H 02/20/19 14:59 Glucose 93 mg/dL (74-106) 02/20/19 14:59 Weight used for dosin kg Estimated Creatinine Clearance: 55 mL/min Goal Trough: 10-15 mcg/mL Pharmacy Plan for Drug Dosing: Initial dose 1500mg IV x1, continue with 750mg IV q12h and trough prior to 4th dose per protocol. Pharmacy Service will continue to monitor and adjust dosing as required. Follow-Up Labs: Trough Vancomycin - 02/22 @ 4382
[2019-02-20 16:45] LABS: Lactic Acid 1.1 mmol/L (0.4-2.0)
--- NOTE | 2019-02-20 17:46 | HP.PCM_ITS ---
History and Physical Date of Admission: 02/20/19 History and Physical Date of Admission: 02/16/19 HISTORY OF PRESENT ILLNESS 58 year old woman presented to the ED on 02/12/19 with a crush injury left hand that she sustained at work at [employer]. This is her second crush injury at work. The first one occurred on 12/21/18. She was able to return to work on 01/22/19. When she went to ED on 02/12/19, an x-ray showed nondisplaced fractures involving the distal aspect of the distal phalanx of the index finger as well as the middle phalanx and distal phalanx of the third digit with soft tissue swelling and laceration. There was a longitudinal laceration on the volar surface long finger that was cleansed and suture repaired. Her range of motion in her index finger and long finger were limited secondary to pain and swelling. She complains of some tingling in the long finger. Her fingers were wrapped and the left hand was splinted. She was discharged home on Cleocin antibiotics and Percocet for pain. She presents today for further evaluation and treatment. Patient is right hand dominant. PAST MEDICAL HISTORY Anxiety and depression Arthritis Asthma Back problem Frequent headaches Osteoarthritis Vision problems High blood pressure PAST SURGICAL HISTORY hysterectomy ALLERGIES bacitracin ondansetron HCl [From Zofran (as hydrochloride)] povidone-iodine [From Betadine] soap [From Betadine] ciprofloxacin promethazine [From Phenergan] cephalexin monohydrate [From Keflex] morphine Penicillins MEDICATIONS Aspirin [Aspirin, Baby] Citalopram [Celexa] Gabapentin [Neurontin] Metoprolol Tartrate [Lopressor (Beta Roberto)] Pramipexole Di-HCl [Mirapex] Quetiapine Fumarate [Seroquel] Meclizine HCl [Antivert] Clindamycin [Cleocin] Naproxen [Naprosyn] Oxycodone HCl/Acetaminophen [Percocet 5/325] traZODone [Desyrel] oxycodone-acetaminophen FAMILY HISTORY Father - Arthritis, Hypertension, Kidney disease, Seizures, CVA (cerebral vascular accident), Heart disease SOCIAL HISTORY Smoking Status: Former smoker alcohol intake: current substance use type: does not use REVIEW OF SYSTEMS General - Denies fever, fatigue, and weight loss. Eyes - Denies cataracts and glaucoma. ENT - Denies nasal congestion and sore throat. Endocrine - Denies excessive thirst and urination. Skin - Denies suspicious lesions and skin cancer. Has bruising tendency. Musculoskeletal - Has joint pain, joint stiffness, back pain, and arthritis. Denies weakness of muscles and joints. Neuro - Has headaches. Cardiovascular - Denies chest pain, fatigue, and shortness of breath with exertion. Psych - Denies anxiety. Has depression. Has claustrophobia. Respiratory - Denies chronic cough and shortness of breath. Has asthma. Gastrointestinal - Denies nausea, vomiting, diarrhea, and constipation. Hematologic - Denies abnormal bruising and bleeding. Genitourinary - Denies hematuria and urinary frequency. PHYSICAL EXAMINATION General - Alert and Oriented HEENT - PERRL. EOMI. Throat is clear. Neck - Supple and nontender. No cervical adenopathy. Lungs - Clear to auscultation. Heart - Regular rate and rhythm. Abdomen - Soft and nondistended. Extremities - FROM right upper extremity. No axillary adenopathy. Radial pulses are palpable. Fingers are warm with good capillary refill. She is right hand dominant. On the left hand was a 5 cm longitudinal laceration on the volar radial aspect of the long finger extending from the distal phalanx to just proximal to the PIP joint crease. It was suture repaired. Tenderness to palpation. Mild swelling present. Has difficulty flexing the long finger at the DIP and PIP joints secondary to pain and swelling and recent bone fractures. This is an open fracture. Also has difficulty flexing the index finger at the DIP and PIP joints secondary to pain and swelling and recent bone fracture. There was a wound at the base of the nail plate in the eponychial fold thus making this an open fracture. On the dorsum of the left long finger extending obliquely toward the radial side of the finger is a superficial laceration. Measures 1.5 cm. It was not suture repaired in the ED. Some sensory deficits to pinprick on the left long finger. No sensory deficits noted on the left index finger. Extension is limited secondary to pain and swelling. Palm is nontender. Neuro - CN II-XII grossly intact. Psych - Normal mood and affect. ASSESSMENT 1. Crush injury left hand. 2. 5 cm longitudinal laceration volar radial aspect long finger extending from the distal phalanx to just proximal to the PIP joint crease. 3. Superficial 1.5 cm laceration dorsum left long finger just proximal to the eponychial fold and extending obliquely and radial. 4. Nondisplaced open fracture left long finger involving distal phalanx and middle phalanx. 5. Nondisplaced open fracture left index finger involving distal phalanx. 6. Possible digital nerve injury left long finger. 7. Possible flexor tendon injury left long finger. 8. Nail bed injury left index finger. 9. Finger swelling left hand involving long finger and index finger. 10. Crush injury left hand. PLAN Continue antibiotics with Cleocin. At the time of surgery, may change to Doxycycline because of risk of osteomyelitis. Recommend operative intervention with exploration of the laceration left long finger and the nail bed injury left index finger. Suspect flexor tendon injury, digital nerve injury along with associated nondisplaced fractures distal phalanx and middle phalanx left long finger and distal phalanx left index finger. If injuries are present, I may need to extend the wound in a zig zag fashion both proximally and distally. With the longitudinal nature of the wound, she is at risk of developing a scar contracture that may necessitate surgical preparation of the long finger with excision of the scar contracture with multiple z-plasty and/or skin graft reconstruction. Suspect a nail bed injury left index finger that will be repaired. I will have access to the distal phalanx fracture which involves the distal portion of the bone. Excision of these fracture fragments and sent to Pathology for analysis to rule out osteomyelitis and to Microbiology for culture. A positive culture may necessitate antibiotic therapy. I should be able to have acces to the distal phalanx fracture of the long finger as well. Will excise these fracture fragments as well to evaluate for osteomyelitis. Leaving the bony fragments, increases the risk of developing chronic bone pain in the future that may necessitate excision at that time and possible tip amputation. Postoperatively, will have the fingers and hand splinted. Will also followup at OT for a silastic splint and after healing has occurred, range of motion exercises, strengthening, and edema management. For the bony fractures, especially the middle phalanx fracture, ORIF may be necessary with Kwire fixation or possibly plate and screw fixation. Surgery will be done under general anesthesia on an outpatient basis. Depending on the amount of pain she is having after surgery, she may need a surgical observation overnight stay in the hospital. Will schedule the surgery in the next 1-2 days. Keep left hand elevated. This complex injury occurred on 02/12/19. She did not go to work yesterday. Due to its complexity, she needs to be off work with total disability beginning the day of injury, 02/12/19, and extending to 05/08/19 (tentative). With the surgery taking place in the next 1-2 days, coupled with adequately healing and subsequent OT for range of motion exercises, strengthening, and edema management, her recovery will be prolonged. 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 She will not go back to those machines. At the appropriate time, she will need to find alternate work within the company that doesn't involve machinery. Patient was informed of the risks and complications of the procedure including alternatives to surgery. These were discussed with the patient personally. Patient voices understanding and wishes to proceed. Some of the risks and complications were included in a form from the [place] [employer]. Some of the risks and complications that were discussed included but were not inclusive of failure to diagnose including symptom relief, pain, infection, numbness, stiffness, loss of digit, RSD (CRPS), need for further surgery, contracture, and wound healing problems. I discussed with the patient that because this is a crush injury, sometimes problems occur later on down the road in 6-12 months such as stiffness, pain, swelling, and range of motion issues that may necessitate operative intervention and release of scar tissue such as tenolysis and/or neurolysis. She voices understanding. She also understands that depending on the healing, she may end up eventually with an amputation of her finger(s). Renewed her Percocet for pain (30 tabs), to be dispensed 02/15/19. Followup after her surgery.
[2019-02-20 18:20] VITALS: BP 147/72; PULSE 61; RESP 18; TEMP 36.6; O2SAT 97
[2019-02-20 18:22] VITALS: BP 119/75; BP 123/72; BP 147/72; PULSE 61; PULSE 68; PULSE 77
[2019-02-20 19:55] LABS: Amphetamine Urine VISTA NEGATIVE (<1000 ng/mL); Barbiturate Urine VISTA NEGATIVE (< 200 ng/mL); Benzodiazepine Urine VISTA NEGATIVE (< 200 ng/mL); Cocaine Urine VISTA NEGATIVE (< 300 ng/mL); Ecstacy Urine VISTA NEGATIVE (< 500 ng/mL); Methadone Urine VISTA NEGATIVE (< 300 ng/mL); PCP Urine VISTA NEGATIVE (< 25 ng/mL); THC Urine VISTA NEGATIVE (< 50 ng/mL); Vista UDS pH Range 5
[2019-02-20 20:18] LABS: Red Blood Cells-Urine 0 SEEN /hpf (0-5)
[2019-02-20 20:19] LABS: Color, Urine Yellow (Yellow); Glucose, Dipstick Normal (Normal); Ketone-Dipstick 15 mg/dl (Negative); Leukocyte Esterase-Dipstick 500 /ul (Negative); Nitrite-Dipstick Negative (Negative); Occult Blood-Urine 10 /ul (Negative); Protein-Dipstick 15 mg/dl (Negative); Urine Bilirubin Dipstick Negative (Negative); Urine Clarity Sl. Cloudy (Clear); Urine Urobilinogen Normal (Normal)
[2019-02-20 20:25] LABS: Bacteria RARE /hpf (None Seen); Mucous, Urine RARE /hpf (<or=2+); White Blood Cells 5-10 SEEN /hpf (0-5)
[2019-02-20 20:26] LABS: Squamous Epithelial Cells - UA 5-10 SEEN /hpf (5-10)
--- NOTE | 2019-02-20 20:34 | PCM.PN.BLA ---
Progress Note Urinalysis with increased leukocyte esterase; rare bacteria but with elevated squamous cells. Discussed with nurse to get a straight cath. Complete urinalysis with urine culture ordered.
[2019-02-20] MEDS: Acetaminophen 325 MG Tablet 650 MG PO (20:54)
[2019-02-20 20:56] VITALS: BP 154/79; PULSE 63; RESP 18; TEMP 36.4; O2SAT 95
[2019-02-20] MEDS: Docusate Sodium 100 MG Capsule PO (21:38)
[2019-02-20] MEDS: Pramipexole Di-HCl 0.25 MG Tablet PO (21:38)
[2019-02-21] MEDS: 0.9% Normal Saline 1,000 ML 100 ML IV ×3 (00:37→21:34)
[2019-02-21 04:30] VITALS: BP 140/87; PULSE 69; RESP 16; TEMP 36.6; O2SAT 99
[2019-02-21] MEDS: 0.9% NaCl Peripheral Flush Adult/Peds IV (04:54)
[2019-02-21 05:06] LABS: Hematocrit 38.6 % (37-47); Hemoglobin 12.9 g/dL (12.0-15.0); Mean Corp Hgb Conc 33.4 g/dL (32-36); Mean Corpuscular Hgb 29.1 pg (27.0-32.0); Mean Corpuscular Volume 87.1 fL (81-99); Mean Platelet Vol. 9.4 fl (6.2-12.0); Platelet Count 146 K/mm3 (150-450); RBC Distribution Width CV 12.1 % (11.6-14.6); RBC Distribution Width SD 39.1 fl (35.1-43.9); Red Blood Count 4.43 M/mm3 (4.2-5.4); White Blood Count 4.8 K/mm3 (4.4-11.0)
[2019-02-21 05:27] LABS: Anion Gap 7 (5-15); BUN 20 mg/dL (7-18); BUN/Creat Ratio 23.8 RATIO (10-20); Calcium,Total 8.2 mg/dL (8.5-10.1); Chloride 110 mmol/L (98-107); Creatinine, Serum 0.84 mg/dL (0.55-1.02); EST Glomerular Filtration Rate 74 mL/min (>60); Est Glom Filt Rate - Afr Amer 90 mL/min (>60); Estimated Creatinine Clearance 61.86 ml/min; Glucose 100 mg/dL (74-106); Potassium 3.8 mmol/L (3.5-5.1); Sodium Level 144 mmol/L (136-145)
--- NOTE | 2019-02-21 06:54 | PN_ITS ---
Subjective: Patient notes currently pain controlled, stating that she needs her dressing changed which was discussed that will be deferred to Dr. Peterson given recent history of grafting. Patient has no other acute complaints otherwise and states that she feels improved since initial presentation as she originally had remarkable nausea, intractable with emesis. Patient denies fevers, chills, nausea, emesis, abdominal pain, chest pain or dyspnea. Objective: Physical Examination: General: awake, alert, oriented x 3 and cooperative, seated upright in bed in no apparent distress. Skin: normal color, turgor, no icterus, cyanosis, LUE hand in dressing. HEENT: AT/NC, EOMI, PERRLA, MMM. Lungs: CTA bilaterally, moderate effort, moderate decrease BL bases, no rales, ronchi or wheezing. Heart: Regular rate and rhythm; no gallop, rub audible. Abdomen: soft, obese, NTTP, ND, normal BS. Extremities: no cyanosis, clubbing, LUE in dressing. Neurological: patient awake, alert, oriented x 3; cognitive function intact; pupils equally reactive to light and accomodation; cranial nerves II-XII grossly normal, moving all 4 extremities although limited LUE given recent surgery, strength accordingly moderately globally decreased. Psychiatric: affect appears normal, no acute evidence of depressive or anxiety feelings. Vitals/I&O's: Vital Signs Temp Pulse Resp BP Pulse Ox 97.9 F 69 16 140/87 H 99 02/21/19 04:30 02/21/19 04:30 02/21/19 04:30 02/21/19 04:30 02/21/19 04:30 Oxygen Delivery Method Room Air Weight: 210 lb 1.608 oz Body Mass Index (BMI) 37.2 Finger Stick Blood Glucose 93 Orthostatic Vital Signs Start: 02/20/19 18:21 Freq: X1 Status: Active Protocol: Activity Type Activity Date Activity User E-Sign Co-Sign Detail Recorded Client Recorded Date Recorded By Document 02/20/19 18:22 DAVID [id number] 02/20/19 18:27 DAVID 02/20/19 18:22 Orthostatic Vitals Standing -Blood Pressure (90/60-120/80) 123/72 H -Extremity Use Left Arm -Pulse Rate (60-100) 77 Sitting -Blood Pressure (90/60-120/80) 119/75 -Extremity Use Left Arm -Pulse Rate (60-100) 68 Lying -Blood Pressure (90/60-120/80) 147/72 H -Extremity Use Left Arm -Pulse Rate (60-100) 61 Intake and Output for Last 24 Hours 02/19/19 02/20/19 02/21/19 23:59 23:59 23:59 Intake Total 500 / 1597 2054 / 2054 Output Total 700 / 900 1000 / 1000 Balance -200 / 697 1054 / 1054 Laboratory Results 02/20/19 14:59: WBC 6.3, RBC 5.06, Hgb 14.5, Hct 43.3, MCV 85.6, MCH 28.7, MCHC 33.5, RDW Std Deviation 38.1, RDW Coeff of [place] 12.2, Plt Count 163, MPV 9.7, ESR 16 02/20/19 14:59: Sodium 139, Potassium 3.7, Chloride 107, Carbon Dioxide 27.0, Anion Gap 5, BUN 20 H, Creatinine 0.94, Estim Creat Clear Calc 55.28, Est GFR (MDRD) Af Amer 79, Est GFR (MDRD) Non-Af 65, BUN/Creatinine Ratio 21.3 H, Glucose 93, Calcium 9.1, Total Bilirubin 0.60, AST 53 H, ALT 167 H, Alkaline Phosphatase 161 H, C-React Prot Ext Range 18.90 H, Total Protein 7.1, Albumin 3.4, Globulin 3.7, Albumin/Globulin Ratio 0.9 02/20/19 15:35: Lactic Acid 1.1 02/20/19 18:35: Urine Opiates Screen NEGATIVE, Urine Methadone Screen NEGATIVE, Ur Barbiturates Screen NEGATIVE, Ur Phencyclidine Scrn NEGATIVE, Ur Amphetamines Screen NEGATIVE, U Methamphetamin-MDMA NEGATIVE, U Benzodiazepines Scrn NEGATIVE, Urine Cocaine Screen NEGATIVE, U Cannabinoids Screen NEGATIVE, Ur Drug Screen Comment 02/20/19 18:35: Urine Color Yellow, Urine Clarity Sl. Cloudy, Urine pH 6.0, Ur Specific [place] 1.020, Urine Protein 15 H, Urine Glucose (UA) Normal, Urine Ketones 15 H, Urine Occult Blood 10 H, Urine Nitrite Negative, Urine Bilirubin Negative, Urine Urobilinogen Normal, Ur Leukocyte Esterase 500 H, Urine RBC 0 SEEN, Urine WBC 5-10 SEEN, Ur Squamous Epith Cells 5-10 SEEN, Urine Bacteria RARE, Urine Mucus RARE 02/21/19 05:00: WBC 4.8, RBC 4.43, Hgb 12.9, Hct 38.6, MCV 87.1, MCH 29.1, MCHC 33.4, RDW Std Deviation 39.1, RDW Coeff of [place] 12.1, Plt Count 146 L, MPV 9.4 02/21/19 05:00: Sodium 144, Potassium 3.8, Chloride 110 H, Carbon Dioxide 27.0, Anion Gap 7, BUN 20 H, Creatinine 0.84, Estim Creat Clear Calc 61.86, Est GFR (MDRD) Af Amer 90, Est GFR (MDRD) Non-Af 74, BUN/Creatinine Ratio 23.8 H, Glucose 100, Calcium 8.2 L Current Medications Acetaminophen (Tylenol) 650 mg PO Q6H PRN PRN PRN Reason: PAIN Last Admin: 02/20/19 20:54 Dose: 650 mg Documented by: Citalopram Hydrobromide (Celexa) 20 mg PO DAILY [facility] Docusate Sodium (Colace) 100 mg PO BID [facility] Last Admin: 02/20/19 21:38 Dose: 100 mg Documented by: [facility]) [facility] Vancomycin IV Pharmacy to Dose (1 ea/ Sodium Chloride) 500 mls @ 250 mls/hr IV X1 PRN; Protocol PRN Reason: Rx to Dose Sodium Chloride () 1,000 mls @ 100 mls/hr IV .Q10H [facility] Last Admin: 02/21/19 00:37 Dose: 100 mls/hr Documented by: Vancomycin HCl 750 mg/ Sodium (Chloride) 265 mls @ 250 mls/hr IV Q12H [facility] Last Admin: 02/21/19 04:28 Dose: 250 mls/hr Documented by: Meclizine HCl (Antivert) 12.5 mg PO DAILY PRN PRN PRN Reason: Vertigo Metoprolol Tartrate (Lopressor (Beta Roberto)) 25 mg PO DAILY [facility] Nutritional Formula ([place] - [place] Flavor) 1 packet PO BIDCM [facility] Last Admin: 02/20/19 18:14 Dose: 1 packet Documented by: Ondansetron HCl (Zofran) 4 mg IV Q6H PRN PRN PRN Reason: NAUSEA Last Admin: 02/20/19 14:46 Dose: 4 mg Documented by: Oxycodone HCl (Oxyir) 10 mg PO Q4H PRN PRN PRN Reason: SEVERE PAIN (-05/17) Pramipexole Dihydrochloride (Mirapex) 0.25 mg PO BID [facility] Last Admin: 02/20/19 21:38 Dose: 0.25 mg Documented by: Quetiapine Fumarate (Seroquel) 25 mg PO QHS PRN PRN Reason: SLEEP Sodium Chloride () 10 - 40 ml IV UD PRN PRN Reason: SALINE FLUSH Last Admin: 02/21/19 04:54 Dose: 30 ml Documented by: Sodium Chloride () 10 - 40 ml IV UD PRN PRN Reason: SALINE FLUSH Sodium Chloride () 10 - 40 ml IV UD PRN PRN Reason: PICC FLUSH Trazodone HCl (Desyrel) 100 mg PO QHS PRN PRN PRN Reason: INSOMNIA Medical Necessity - Tobacco Use Smoking Status: Former smoker Assessment/Plan All Active Problems (Last Updated 12/25/18 @ 16:06 by Jess Muro) Crushing injury of left middle finger, initial encounter (Acute) Crushing injury of left index finger, initial encounter (Acute) Injury of nail bed of finger of left hand (Acute) Finger swelling (Acute) Laceration of left middle finger without foreign body without damage to nail (Acute) Open nondisplaced fracture of distal phalanx of left index finger (Acute) Open nondisplaced fracture of distal phalanx of left middle finger (Acute) Open nondisplaced fracture of middle phalanx of left middle finger (Acute) Swelling of left hand (Resolved) Crushing injury of hand, left (Acute) Laceration of left palm (Acute) Heat exhaustion (Acute) The patient is a 58 y/o F w/ PMHx: Obesity, HTN, HLD, Depression and Anxiety who presents to the [facility] as direct admission per Dr. Peterson on 02/20/19 with history of recent crust injury to the LUE with surgical intervention 02/16/19 with closure of longitudinal laceration, reconstruction, debridement with volar immobilization splinting and distal phalanx tuft left index finger partial ostectomy for osteomyelitis secondary to poor appetite, nausea which has become intractable with emesis. (1) Recent LUE Crush Injury, Index Finger Trauma: Admitted per Dr. Peterson, recent post-op, wound RN consultation pending, dressing changes per Dr. Peterson discretion, maintained currently on IV vanc, therapies per surgery discretion, unclear if nausea, emesis potentially related to recent abx therapies. (2) Intractable Nausea, Emesis: Patient maintained on IV fluids, PRN Zofran, add Phenergan if necessary, urinalysis with no obvious evidence of infection, dehydration evident, urine drug screen negative, BC with no WC elevation with no differential performed, ESR unremarkable, BMP not market however liver profile with AST/ALT 53/167, alks phos 161 and CRP elevated 18.90, PICC line in place, continued on vancomycin (3) Obesity: Weight loss and lifestyle changes encouraged. (4) Hypertension: Continue home regimen including metoprolol, PRN hydralazine. (5) Anxiety and Depression: Continue home celexa, seroquel, trazodone. (6) RLS: Continue home Requip regimen. (7) DVT Prophylaxis: SCDs, lovenox. Code Visit Inpatient E&M: [id number] Subs Hosp L2
[2019-02-21 08:15] VITALS: BP 133/76; PULSE 55; RESP 18; TEMP 36.8; O2SAT 100
[2019-02-21 08:20] VITALS: PULSE 55
[2019-02-21] MEDS: Citalopram 20 MG Tablet PO (08:20)
[2019-02-21] MEDS: Pramipexole Di-HCl 0.25 MG Tablet PO ×2 (08:20→21:34)
[2019-02-21] MEDS: Docusate Sodium 100 MG Capsule PO ×2 (08:20→21:34)
[2019-02-21] MEDS: Metoprolol Tartrate 25 MG Tablet PO (08:20)
[2019-02-21 09:37] LABS: AST(SGOT) 31 U/L (15-37); Alanine Aminotransfer ALT/SGPT 122 U/L (13-56); Albumin, Serum 2.9 g/dL (3.2-5.0); Alkaline Phosphatase 131 U/L (45-117); Bilirubin, Direct 0.14 mg/dL (0.00-0.30); Globulin 3.3 g/dL (2.2-4.2); Protein, Total 6.2 g/dL (6.4-8.2)
[2019-02-21] MEDS: Enoxaparin 40 MG/0.4 ML Syringe SC (10:05)
[2019-02-21] MEDS: Acetaminophen 325 MG Tablet 650 MG PO ×2 (10:05→21:34)
[2019-02-21] MEDS: Ondansetron 4 MG/2 ML Vial IV (10:05)
--- NOTE | 2019-02-21 11:28 | CASEMGMT ---
MAT CHANDLER Assessment Presentation: Crush injury @ work. Will need IV antibiotics on discharge. Intro role of CM and purpose of RN CM assessment to patient. She is alert, oriented and able to participate in dc planning. Demographics, PCP and Pharmacy verified. Pt plans to return home. Discussed IV antibiotics and need to have someone teachable to learn to administer. Pt's sister in law Angela is in room and states she is able to assist if IV antibiotic dosing is in the am. Pt does not have preference for Home Health or Infusion agency as long as it is covered by [employer]. -Call to [facility] ([facility] carrier for [place]). Contact: Narcisa MagallanesDon PH: FX: - MAT [facility]AND[facility] will be needing IV antibiotics, Home care and dressing changes on discharge. - C-9 to be completed for: Infusion Company for IV antibiotics, Home Health for wound care and infusion, IV antibiotics (list specific medication, doseage, frequency and end date). Also fax copy of script for dressing supplies and script for IV antibiotic to Narcisa. -MAT CHANDLER spoke with [facility] to update re: pt admission. PCP: Dr. Amaro Specialists: Dr. Peterson Preferred Pharmacy: [facility] Insurance: [facility] Prescription Benefit: yes LNOK: Brother Jeremiah Johnson Living Arrangements: Lives in two story home with bedroom, bathroom upstairs only. Pt was independent prior to admission. Anticipates may need family assist on dc as L arm is affected. Transportation: drives, family can assist with driving. DME: vik azul HHC: Referral faxed to [facility] for review. Call to [facility], they do accept [facility] with approved claim and C9 -Call to [facility]. They accept [facility] with approved C9. --Patient DC goals: Home DC PLAN: Home with IV antibiotics through [facility] and HHC through [facility]- referrals not complete or approved yet. Bernard PHILLIPSN RN ACM
[2019-02-21 14:30] VITALS: BP 127/72; PULSE 58; RESP 18; TEMP 36.9; O2SAT 94
--- NOTE | 2019-02-21 17:38 | PN.SURG_ITS ---
Subjective: Postop #5 Patient states the nausea is a little better. Had some pain with the dressing change. - Physical Exam General: Alert, Oriented x3 HEENT: PERRLA, EOMI Oral: Moist Mucosa Neck: Supple Abdomen: Soft, Non-Distended Skin: Incision - left index finger and long finger incisions are dry and intact. Mild swelling present. Skin graft shows good adherence and 100% take. Continue splint. Neurological: Cranial nerves II-XII grossly intact Psych/Mental Status: Normal Affect, Appropriate Vital Signs Temp Pulse Resp BP Pulse Ox 98.4 F 58 L 18 127/72 H 94 02/21/19 14:30 02/21/19 14:30 02/21/19 14:30 02/21/19 14:30 02/21/19 14:30 Oxygen Delivery Method Room Air Weight: 210 lb 1.608 oz Body Mass Index (BMI) 37.2 Finger Stick Blood Glucose 93 Intake and Output for Last 24 Hours 02/19/19 02/20/19 02/21/19 23:59 23:59 23:59 Intake Total 500 / 1597 2907 / 2907 Output Total 700 / 900 1999 Balance -200 / 697 907 / 907 Laboratory Tests Past 24 Hrs 02/20/19 02/20/19 02/21/19 18:35 18:35 05:00 WBC 4.8 RBC 4.43 Hgb 12.9 Hct 38.6 MCV 87.1 MCH 29.1 MCHC 33.4 RDW Std Deviation 39.1 RDW Coeff of [place] 12.1 Plt Count 146 L MPV 9.4 Sodium Potassium Chloride Carbon Dioxide Anion Gap BUN Creatinine Estim Creat Clear Calc Est GFR (MDRD) Af Amer Est GFR (MDRD) Non-Af BUN/Creatinine Ratio Glucose Calcium Total Bilirubin Direct Bilirubin AST ALT Alkaline Phosphatase Total Protein Albumin Globulin Urine Color Yellow Urine Clarity Sl. Cloudy Urine pH 6.0 Ur Specific [place] 1.020 Urine Protein 15 H Urine Glucose (UA) Normal Urine Ketones 15 H Urine Occult Blood 10 H Urine Nitrite Negative Urine Bilirubin Negative Urine Urobilinogen Normal Ur Leukocyte Esterase 500 H Urine RBC 0 SEEN Urine WBC 5-10 SEEN Ur Squamous Epith Cells 5-10 SEEN Urine Bacteria RARE Urine Mucus RARE Urine Opiates Screen NEGATIVE Urine Methadone Screen NEGATIVE Ur Barbiturates Screen NEGATIVE Ur Phencyclidine Scrn NEGATIVE Ur Amphetamines Screen NEGATIVE U Methamphetamin-MDMA NEGATIVE U Benzodiazepines Scrn NEGATIVE Urine Cocaine Screen NEGATIVE U Cannabinoids Screen NEGATIVE Ur Drug Screen Comment 02/21/19 02/21/19 05:00 05:00 WBC RBC Hgb Hct MCV MCH MCHC RDW Std Deviation RDW Coeff of [place] Plt Count MPV Sodium 144 Potassium 3.8 Chloride 110 H Carbon Dioxide 27.0 Anion Gap 7 BUN 20 H Creatinine 0.84 Estim Creat Clear Calc 61.86 Est GFR (MDRD) Af Amer 90 Est GFR (MDRD) Non-Af 74 BUN/Creatinine Ratio 23.8 H Glucose 100 Calcium 8.2 L Total Bilirubin 0.50 Direct Bilirubin 0.14 AST 31 ALT 122 H Alkaline Phosphatase 131 H Total Protein 6.2 L Albumin 2.9 L Globulin 3.3 Urine Color Urine Clarity Urine pH Ur Specific [place] Urine Protein Urine Glucose (UA) Urine Ketones Urine Occult Blood Urine Nitrite Urine Bilirubin Urine Urobilinogen Ur Leukocyte Esterase Urine RBC Urine WBC Ur Squamous Epith Cells Urine Bacteria Urine Mucus Urine Opiates Screen Urine Methadone Screen Ur Barbiturates Screen Ur Phencyclidine Scrn Ur Amphetamines Screen U Methamphetamin-MDMA U Benzodiazepines Scrn Urine Cocaine Screen U Cannabinoids Screen Ur Drug Screen Comment Pathology - pending. Medical Necessity - Tobacco Use Smoking Status: Former smoker Assessment/Plan All Active Problems (Last Updated 12/25/18 @ 16:06 by Jess Muro) Osteomyelitis of finger of left hand (Acute) Crushing injury of left middle finger, initial encounter (Acute) Crushing injury of left index finger, initial encounter (Acute) Injury of nail bed of finger of left hand (Acute) Finger swelling (Acute) Laceration of left middle finger without foreign body without damage to nail (Acute) Open nondisplaced fracture of distal phalanx of left index finger (Acute) Open nondisplaced fracture of distal phalanx of left middle finger (Acute) Open nondisplaced fracture of middle phalanx of left middle finger (Acute) Swelling of left hand (Resolved) Crushing injury of hand, left (Acute) Laceration of left palm (Acute) Heat exhaustion (Acute) 1. Crush injury left hand. 2. 5 cm longitudinal laceration volar radial aspect left long finger extending from the distal phalanx to just proximal to the PIP joint crease. 3. 1.5 cm laceration dorsum left long finger just proximal to the eponychial fold and extending obliquely and radial. 4. Nondisplaced open fracture left long finger involving distal phalanx and middle phalanx. 5. Nondisplaced open fracture left index finger involving distal phalanx. 6. Nail bed injury left index finger. 7. Finger swelling left hand involving long finger and index finger. 8. s/p exploration 5 cm longitudinal laceration volar radial aspect left long finger extending from the distal phalanx to just proximal to the PIP joint crease with 4.5 cm complex closure repair and FTSG reconstruction from the volar ulnar forearm (2.5 cm2) and exploration 1.5 cm laceration dorsum left long finger just proximal to the eponychial fold and extending obliquely and radial with 3.5 cm complex closure repair and excisional debridement open fracture distal phalanx tuft left long finger with partial ostectomy for osteomyelitis and treatment nondisplaced stable longitudinal open fracture middle phalanx left long finger without manipulation and with volar immobilization splinting and excisional debridement open fracture distal phalanx tuft left index finger with partial ostectomy for osteomyelitis and repair nail bed injury left index finger. 9. Osteomyelitis left index finger and left long finger. 10. Intractable nausea. Incisions are dry and intact. Skin graft is healing with good adherence and 100% take. Fingers are mildly swollen. PICC line in place. Continue Vancomycin which she will need for 6 weeks. Hospitalist input appreciated. Awaiting infusion company and Home Health arrangements for the antibiotics and to check weekly labs while on antibiotics (CBC, CMP, ESR, CRP, Vancomycin Trough). Pharmacy will dose the Vancomycin. Continue splint. After discharge and after healing, will need OT for range of motion exercises, strengthening, and edema management.
[2019-02-21 20:30] VITALS: BP 145/72; PULSE 65; RESP 16; TEMP 37.3; O2SAT 99
[2019-02-21] MEDS: traZODone 100 MG Tablet PO (21:34)
[2019-02-22] VITALS (8 sets, daily range): BP systolic 124–176; BP diastolic 66–86; PULSE 55–72; RESP 14–18; TEMP 36.5–36.9; O2SAT 97–100
[2019-02-22 04:20] LABS: Vancomycin, Trough Level 9.3 ug/mL (5.0-15.0)
--- NOTE | 2019-02-22 05:01 | PCM.RX.CS ---
Consult Pharmacy has been consulted to manage selected antiobiotic: Vancomycin Type of Consult: New start Suspected Infection: Other Prior Doses of Antibiotics Received/Current Regimen: Medications Vancomycin HCl 750 mg/ Sodium (Chloride) 265 mls @ 250 mls/hr IV Q12H [facility] Last Admin: 02/22/19 04:08 Dose: 250 mls/hr Documented by: Labs: Vancomycin Trough 9.3 ug/mL (5.0-15.0) 02/22/19 03:34 Weight used for dosin kg Goal Trough: 10-15 mcg/mL Pharmacy Plan for Drug Dosing: Vancomycin trough slightly below goal. Recommend to leave dose and schedule as is considering the dose is low compared to patient's weight and is likely not at steady state. Check trough again in 4 days per policy. Pharmacy Service will continue to monitor and adjust dosing as required. Follow-Up Labs: Trough Vancomycin - 02/26 @ 1530
[2019-02-22 05:27] LABS: Absolute Lymphocyte Count 1.63 X10^3/uL (0.83-4.51); Absolute Neutrophil Count 1.8 X10^3/uL (2.0-7.7); Basophil# 0.02 X10^3/uL; Basophil% 0.5 % (0-1); Eosinophil# 0.11 X10^3/uL; Eosinophils% 2.8 % (0-5); Hematocrit 35.7 % (37-47); Hemoglobin 11.9 g/dL (12.0-15.0); Lymphocyte # 1.63 X10^3/ul (4.0); Lymphocyte % 41.6 % (19-41); Mean Corp Hgb Conc 33.3 g/dL (32-36); Mean Corpuscular Hgb 28.8 pg (27.0-32.0); Mean Corpuscular Volume 86.4 fL (81-99); Mean Platelet Vol. 9.7 fl (6.2-12.0); Monocyte# 0.36 X10^3/uL; Monocyte% 9.2 % (0-10); NRBC Flagged by Analyzer 0 % (0-5); Neutrophil # 1.79 X10^3/uL (2.7-7.7); Neutrophil % 45.6 % (47-70); Platelet Count 142 K/mm3 (150-450); RBC Distribution Width CV 12.5 % (11.6-14.6); RBC Distribution Width SD 39.3 fl (35.1-43.9); Red Blood Count 4.13 M/mm3 (4.2-5.4); White Blood Count 3.9 K/mm3 (4.4-11.0)
[2019-02-22 05:37] LABS: AST(SGOT) 42 U/L (15-37); Alanine Aminotransfer ALT/SGPT 105 U/L (13-56); Albumin, Serum 2.8 g/dL (3.2-5.0); Alkaline Phosphatase 141 U/L (45-117); Anion Gap 7 (5-15); BUN 21 mg/dL (7-18); BUN/Creat Ratio 23.4 RATIO (10-20); Calcium,Total 8.2 mg/dL (8.5-10.1); Chloride 111 mmol/L (98-107); EST Glomerular Filtration Rate 69 mL/min (>60); Est Glom Filt Rate - Afr Amer 83 mL/min (>60); Estimated Creatinine Clearance 57.74 ml/min; Globulin 2.8 g/dL (2.2-4.2); Glucose 153 mg/dL (74-106); Potassium 3.6 mmol/L (3.5-5.1); Protein, Total 5.6 g/dL (6.4-8.2); Sodium Level 144 mmol/L (136-145)
--- NOTE | 2019-02-22 07:17 | PCM.PN.HOSP ---
Subjective: Patient overnight with some bleeding from her surgical incisions with dressing reinforced and changed again with only noted small oozing at that time. Patient had been extremely eager for discharge today however from discussion with staff plan discharge will be the following day. Patient denies fevers, chills, nausea, emesis, abdominal pain, chest pain or dyspnea. Objective: Physical Examination: General: awake, alert, oriented x 3 and cooperative, seated upright bedside chair, NAD. Skin: normal color, turgor, no icterus, cyanosis, LUE hand in dressing, takedown with noted incisions intact, some mild edema, gentle oozing but otherwise well-appearing. HEENT: AT/NC, EOMI, PERRLA, MMM. Lungs: CTA bilaterally, moderate effort, moderate decrease BL bases, no rales, ronchi or wheezing. Heart: Regular rate and rhythm; no gallop, rub audible. Abdomen: soft, obese, NTTP, ND, normal BS. Extremities: no cyanosis, clubbing, LUE in dressing. Neurological: patient awake, alert, oriented x 3; cognitive function intact; pupils equally reactive to light and accomodation; cranial nerves II-XII grossly normal, moving all 4 extremities although limited LUE given recent surgery, strength moves, mildly global decrease, patient prior to examination is up and walking. Psychiatric: affect appears normal, no acute evidence of depressive or anxiety feelings. Vitals/I&O's: Vital Signs Temp Pulse Resp BP Pulse Ox 97.9 F 59 L 16 141/80 H 99 02/22/19 02:30 02/22/19 02:30 02/22/19 02:30 02/22/19 02:30 02/22/19 02:30 Oxygen Delivery Method Room Air Weight: 210 lb 1.608 oz Body Mass Index (BMI) 37.2 Finger Stick Blood Glucose 93 Intake and Output for Last 24 Hours 02/20/19 02/21/19 02/22/19 23:59 23:59 23:59 Intake Total 500 / 1597 3760 / 4617 857 / 857 Output Total 700 / 900 2500 / 3500 1000 / 1000 Balance -200 / 697 1260 / 1117 -143 / -143 Laboratory Results 02/21/19 05:00: Total Bilirubin 0.50, Direct Bilirubin 0.14, AST 31, ALT 122 H, Alkaline Phosphatase 131 H, Total Protein 6.2 L, Albumin 2.9 L, Globulin 3.3 02/22/19 03:34: Vancomycin Trough 9.3 02/22/19 03:34: Sodium 144, Potassium 3.6, Chloride 111 H, Carbon Dioxide 26.0, Anion Gap 7, BUN 21 H, Creatinine 0.90, Estim Creat Clear Calc 57.74, Est GFR (MDRD) Af Amer 83, Est GFR (MDRD) Non-Af 69, BUN/Creatinine Ratio 23.4 H, Glucose 153 H, Calcium 8.2 L, Total Bilirubin 0.30, AST 42 H, ALT 105 H, Alkaline Phosphatase 141 H, Total Protein 5.6 L, Albumin 2.8 L, Globulin 2.8, Albumin/Globulin Ratio 1.0 02/22/19 05:07: WBC 3.9 L, RBC 4.13 L, Hgb 11.9 L, Hct 35.7 L, MCV 86.4, MCH 28.8, MCHC 33.3, RDW Std Deviation 39.3, RDW Coeff of [place] 12.5, Plt Count 142 L, MPV 9.7, Immature Gran % (Auto) 0.300, Neut % (Auto) 45.6 L, Lymph % (Auto) 41.6 H, [place] % (Auto) 9.2, Eos % (Auto) 2.8, Baso % (Auto) 0.5, Absolute Neuts (auto) 1.8 L, Absolute Lymphs (auto) 1.63, Absolute Nucleated RBC 0.00, Nucleated RBC % 0 Current Medications Acetaminophen (Tylenol) 650 mg PO Q6H PRN PRN PRN Reason: PAIN Last Admin: 02/21/19 21:34 Dose: 650 mg Documented by: Citalopram Hydrobromide (Celexa) 20 mg PO DAILY [facility] Last Admin: 02/21/19 08:20 Dose: 20 mg Documented by: Docusate Sodium (Colace) 100 mg PO BID [facility] Last Admin: 02/21/19 21:34 Dose: 100 mg Documented by: Enoxaparin Sodium (Lovenox) 40 mg SC DAILY@0600 [facility] Last Admin: 02/21/19 10:05 Dose: 40 mg Documented by: [facility]) [facility] Hydralazine HCl (Apresoline Iv) 10 mg IV Q4H PRN PRN PRN Reason: SBP > 160 Vancomycin IV Pharmacy to Dose (1 ea/ Sodium Chloride) 500 mls @ 250 mls/hr IV X1 PRN; Protocol PRN Reason: Rx to Dose Sodium Chloride () 1,000 mls @ 100 mls/hr IV .Q10H [facility] Last Admin: 02/21/19 21:34 Dose: 100 mls/hr Documented by: Vancomycin HCl 750 mg/ Sodium (Chloride) 265 mls @ 250 mls/hr IV Q12H [facility] Last Admin: 02/22/19 04:08 Dose: 250 mls/hr Documented by: Meclizine HCl (Antivert) 12.5 mg PO DAILY PRN PRN PRN Reason: Vertigo Metoprolol Tartrate (Lopressor (Beta Roberto)) 25 mg PO DAILY [facility] Last Admin: 02/21/19 08:20 Dose: 25 mg Documented by: Nutritional Formula (Chacho - Cowgill Flavor) [facility] Last Admin: 02/21/19 16:24 Dose: 1 packet Documented by: Ondansetron HCl (Zofran) 4 mg IV Q6H PRN PRN PRN Reason: NAUSEA Last Admin: 02/21/19 10:05 Dose: 4 mg Documented by: Oxycodone HCl (Oxyir) 10 mg PO Q4H PRN PRN PRN Reason: SEVERE PAIN (6-10/10) Pramipexole Dihydrochloride (Mirapex) 0.25 mg PO BID [facility] Last Admin: 02/21/19 21:34 Dose: 0.25 mg Documented by: Quetiapine Fumarate (Seroquel) 25 mg PO QHS PRN PRN Reason: SLEEP Sodium Chloride () 10 - 40 ml IV UD PRN PRN Reason: SALINE FLUSH Last Admin: 02/21/19 04:54 Dose: 30 ml Documented by: Sodium Chloride () 10 - 40 ml IV UD PRN PRN Reason: SALINE FLUSH Sodium Chloride () 10 - 40 ml IV UD PRN PRN Reason: PICC FLUSH Trazodone HCl (Desyrel) 100 mg PO QHS PRN PRN PRN Reason: INSOMNIA Last Admin: 02/21/19 21:34 Dose: 100 mg Documented by: Medical Necessity - Tobacco Use Smoking Status: Former smoker Assessment/Plan All Active Problems (Last Updated 12/25/18 @ 16:06 by Jess Muro) Crushing injury of left middle finger, initial encounter (Acute) Crushing injury of left index finger, initial encounter (Acute) Injury of nail bed of finger of left hand (Acute) Finger swelling (Acute) Laceration of left middle finger without foreign body without damage to nail (Acute) Open nondisplaced fracture of distal phalanx of left index finger (Acute) Open nondisplaced fracture of distal phalanx of left middle finger (Acute) Open nondisplaced fracture of middle phalanx of left middle finger (Acute) Swelling of left hand (Resolved) Crushing injury of hand, left (Acute) Laceration of left palm (Acute) Heat exhaustion (Acute) The patient is a 58 y/o F w/ PMHx: Obesity, HTN, HLD, Depression and Anxiety who presents to the [facility] as direct admission per Dr. Peterson on 02/20/19 with history of recent crust injury to the LUE with surgical intervention 02/16/19 with closure of longitudinal laceration, reconstruction, debridement with volar immobilization splinting and distal phalanx tuft left index finger partial ostectomy for osteomyelitis secondary to poor appetite, nausea which has become intractable with emesis. (1) Recent LUE Crush Injury, Index Finger Trauma: Admitted per Dr. Peterson, recent post-op, wound RN consultation pending, dressing changes per Dr. Peterson discretion, maintained currently on IV vanc, therapies per surgery discretion, unclear if nausea, emesis potentially related to recent abx therapies. From discussions with CM planned discharge 02/23/19. (2) Intractable Nausea, Emesis w/ Elevated LFTs: Patient maintained on IV fluids, PRN Zofran, add Phenergan if necessary, urinalysis with no obvious evidence of infection, dehydration evident, urine drug screen negative, BC with no WC elevation with no differential performed, ESR unremarkable, BMP not market however liver profile with AST/ALT 53/167, alks phos 161 and CRP elevated 18.90, PICC line in place--> hydrated, continue treatment as noted above #1, repeat CMP with improving liver function testing with AST/ALT 105/141. (3) Obesity: Weight loss and lifestyle changes encouraged. (4) Hypertension: Continue home regimen including metoprolol, PRN hydralazine. (5) Anxiety and Depression: Continue home celexa, seroquel, trazodone. (6) RLS: Continue home Requip regimen. (7) DVT Prophylaxis: SCDs, lovenox. Code Visit Inpatient E&M: 11640 Subs Hosp L2
[2019-02-22] MEDS: Enoxaparin 40 MG/0.4 ML Syringe SC (08:33)
[2019-02-22] MEDS: Docusate Sodium 100 MG Capsule PO ×2 (08:34→20:56)
[2019-02-22] MEDS: Pramipexole Di-HCl 0.25 MG Tablet PO ×2 (08:34→20:56)
[2019-02-22] MEDS: Citalopram 20 MG Tablet PO (08:34)
[2019-02-22] MEDS: Metoprolol Tartrate 25 MG Tablet PO (08:34)
--- NOTE | 2019-02-22 12:09 | NURSING ---
wound photo: left arm/hand
--- NOTE | 2019-02-22 12:10 | NURSING ---
wound photo: left hand
--- NOTE | 2019-02-22 15:24 | CASEMGMT ---
MAT CHANDLER completed C9 for workman's comp and faxed to Narcisa at [facility] along with scripts for supplies and IV Vancomycin. MAT CHANDLER sent referral to [facility] and they are able to accept the patient, with start of care for 02/23/191999. Referral sent to [facility] for IV ATB setup. MAT CHANDLER will continue to follow this patient and plan for a safe discharge.
[2019-02-22] MEDS: hydrALAZINE 20 MG/ML Vial 10 MG IV (16:50)
[2019-02-22] MEDS: 0.9% NaCl Peripheral Flush Adult/Peds IV ×2 (16:52→20:57)
--- NOTE | 2019-02-22 17:29 | PCM.PN.SRG ---
Subjective: Postop #6 Patient is resting comfortably. She states the nausea is a little better. Awaiting arrangements for home (Infusion company for antibiotics and Home Health). - Physical Exam General: Alert, Oriented x3 HEENT: PERRLA, EOMI Oral: Moist Mucosa Neck: Supple Abdomen: Soft, Non-Distended Skin: Incision - left index finger nad long finger incisions are dry and intact. Mild swelling noted. Skin graft shows good adherence and 100% take. Continue splint. Neurological: Cranial nerves II-XII grossly intact Psych/Mental Status: Normal Affect, Appropriate Vital Signs Temp Pulse Resp BP Pulse Ox 98.1 F 55 L 18 176/74 H 97 02/22/19 16:34 02/22/19 16:50 02/22/19 16:34 02/22/19 16:34 02/22/19 16:34 Oxygen Delivery Method Room Air Weight: 210 lb 1.608 oz Body Mass Index (BMI) 37.2 Finger Stick Blood Glucose 93 Intake and Output for Last 24 Hours 02/20/19 02/21/19 02/22/19 23:59 23:59 23:59 Intake Total 500 / 1597 3760 / 4617 2643 / 2643 Output Total 700 / 900 2500 / 3500 3000 / 3000 Balance -200 / 697 1260 / 1117 -357 / -357 Microbiology Past 72 Hours 02/20/19 15:35 Blood Culture - Preliminary Blood Culture (Wb) - Anticubital Right No growth in 48 hours. 02/20/19 15:30 Blood Culture - Preliminary Blood Culture (Wb) - Anticubital Left No growth in 48 hours. 02/20/19 18:35 Urine Culture - Preliminary Urine Catheter - Catheter Streptococcus group B Gram positive organism Laboratory Tests Past 24 Hrs 02/22/19 02/22/19 02/22/19 03:34 03:34 05:07 WBC 3.9 L RBC 4.13 L Hgb 11.9 L Hct 35.7 L MCV 86.4 MCH 28.8 MCHC 33.3 RDW Std Deviation 39.3 RDW Coeff of [place] 12.5 Plt Count 142 L MPV 9.7 Immature Gran % (Auto) 0.300 Neut % (Auto) 45.6 L Lymph % (Auto) 41.6 H [place] % (Auto) 9.2 Eos % (Auto) 2.8 Baso % (Auto) 0.5 Absolute Neuts (auto) 1.8 L Absolute Lymphs (auto) 1.63 Absolute Nucleated RBC 0.00 Nucleated RBC % 0 Sodium 144 Potassium 3.6 Chloride 111 H Carbon Dioxide 26.0 Anion Gap 7 BUN 21 H Creatinine 0.90 Estim Creat Clear Calc 57.74 Est GFR (MDRD) Af Amer 83 Est GFR (MDRD) Non-Af 69 BUN/Creatinine Ratio 23.4 H Glucose 153 H Calcium 8.2 L Total Bilirubin 0.30 AST 42 H ALT 105 H Alkaline Phosphatase 141 H Total Protein 5.6 L Albumin 2.8 L Globulin 2.8 Albumin/Globulin Ratio 1.0 Vancomycin Trough 9.3 Pathology - showed some osteonecrosis. No osteomyelitis present. Clinical correlation suggested. Medical Necessity - Tobacco Use Smoking Status: Former smoker Assessment/Plan All Active Problems (Last Updated 12/25/18 @ 16:06 by Jess Muro) Osteomyelitis of finger of left hand (Acute) Crushing injury of left middle finger, initial encounter (Acute) Crushing injury of left index finger, initial encounter (Acute) Injury of nail bed of finger of left hand (Acute) Finger swelling (Acute) Laceration of left middle finger without foreign body without damage to nail (Acute) Open nondisplaced fracture of distal phalanx of left index finger (Acute) Open nondisplaced fracture of distal phalanx of left middle finger (Acute) Open nondisplaced fracture of middle phalanx of left middle finger (Acute) Swelling of left hand (Resolved) Crushing injury of hand, left (Acute) Laceration of left palm (Acute) Heat exhaustion (Acute) 1. Crush injury left hand. 2. 5 cm longitudinal laceration volar radial aspect left long finger extending from the distal phalanx to just proximal to the PIP joint crease. 3. 1.5 cm laceration dorsum left long finger just proximal to the eponychial fold and extending obliquely and radial. 4. Nondisplaced open fracture left long finger involving distal phalanx and middle phalanx. 5. Nondisplaced open fracture left index finger involving distal phalanx. 6. Nail bed injury left index finger. 7. Finger swelling left hand involving long finger and index finger. 8. s/p exploration 5 cm longitudinal laceration volar radial aspect left long finger extending from the distal phalanx to just proximal to the PIP joint crease with 4.5 cm complex closure repair and FTSG reconstruction from the volar ulnar forearm (2.5 cm2) and exploration 1.5 cm laceration dorsum left long finger just proximal to the eponychial fold and extending obliquely and radial with 3.5 cm complex closure repair and excisional debridement open fracture distal phalanx tuft left long finger with partial ostectomy for osteomyelitis and treatment nondisplaced stable longitudinal open fracture middle phalanx left long finger without manipulation and with volar immobilization splinting and excisional debridement open fracture distal phalanx tuft left index finger with partial ostectomy for osteomyelitis and repair nail bed injury left index finger. 9. Osteomyelitis left index finger and left long finger. 10. Intractable nausea, improving. 11. Elevated LFT's. Incisions are dry and intact. Skin graft is healing with good adherence and 100% take. Fingers are mildly swollen. Can apply Bactroban ointment to the skin graft and suture lines daily. PICC line in place. Continue Vancomycin which she will need for 6 weeks because of operative cultures (02/16/19) that showed MRSE in the soft tissue left long finger and MRSE x2 in the soft tissue left index finger and Staphylococcus epidermidis in the bone left long finger and MRSE and Staphylococcus epidermidis in the bone left index finger. Hospitalist input appreciated. Awaiting infusion company and Home Health arrangements for the antibiotics and to check weekly labs while on antibiotics (CBC, CMP, ESR, CRP, Vancomycin Trough). Pharmacy will dose the Vancomycin. Continue splint. After discharge and after healing, will need OT for range of motion exercises, strengthening, and edema management.
[2019-02-22] MEDS: QUEtiapine 25 MG Tablet PO (22:58)
[2019-02-22] MEDS: Acetaminophen 325 MG Tablet 650 MG PO (23:02)
[2019-02-23 02:45] VITALS: BP 136/73; PULSE 66; RESP 16; TEMP 37; O2SAT 99
[2019-02-23] MEDS: 0.9% NaCl Peripheral Flush Adult/Peds IV ×2 (04:59→08:50)
[2019-02-23] MEDS: Enoxaparin 40 MG/0.4 ML Syringe SC (04:59)
[2019-02-23 06:31] LABS: Absolute Lymphocyte Count 1.63 X10^3/uL (0.83-4.51); Absolute Neutrophil Count 2.6 X10^3/uL (2.0-7.7); Basophil# 0.03 X10^3/uL; Basophil% 0.6 % (0-1); Eosinophil# 0.13 X10^3/uL; Eosinophils% 2.7 % (0-5); Hematocrit 39.6 % (37-47); Hemoglobin 13.1 g/dL (12.0-15.0); Lymphocyte # 1.63 X10^3/ul (4.0); Lymphocyte % 34.5 % (19-41); Mean Corp Hgb Conc 33.1 g/dL (32-36); Mean Corpuscular Hgb 28.1 pg (27.0-32.0); Mean Platelet Vol. 9.7 fl (6.2-12.0); Monocyte# 0.34 X10^3/uL; Monocyte% 7.2 % (0-10); NRBC Flagged by Analyzer 0 % (0-5); Neutrophil # 2.59 X10^3/uL (2.7-7.7); Neutrophil % 54.8 % (47-70); Platelet Count 170 K/mm3 (150-450); RBC Distribution Width CV 12.7 % (11.6-14.6); RBC Distribution Width SD 39.2 fl (35.1-43.9); Red Blood Count 4.66 M/mm3 (4.2-5.4); White Blood Count 4.7 K/mm3 (4.4-11.0)
[2019-02-23 06:59] LABS: ALB/GLOB Ratio 0.9 RATIO (0.9-2.4); AST(SGOT) 51 U/L (15-37); Alanine Aminotransfer ALT/SGPT 114 U/L (13-56); Alkaline Phosphatase 161 U/L (45-117); Anion Gap 7 (5-15); BUN 20 mg/dL (7-18); BUN/Creat Ratio 21.3 RATIO (10-20); Calcium,Total 8.6 mg/dL (8.5-10.1); Chloride 110 mmol/L (98-107); Creatinine, Serum 0.94 mg/dL (0.55-1.02); EST Glomerular Filtration Rate 66 mL/min (>60); Est Glom Filt Rate - Afr Amer 79 mL/min (>60); Estimated Creatinine Clearance 55.28 ml/min; Globulin 3.3 g/dL (2.2-4.2); Glucose 116 mg/dL (74-106); Potassium 3.3 mmol/L (3.5-5.1); Protein, Total 6.3 g/dL (6.4-8.2); Sodium Level 144 mmol/L (136-145)
--- NOTE | 2019-02-23 07:05 | US_ITS ---
STUDY: ABDOMINAL ULTRASOUND - RIGHT UPPER QUADRANT REASON FOR VISIT: Female, 58 years old. Elevated liver function tests. TECHNIQUE: Ultrasound evaluation of the right upper quadrant was performed with real-time and static mcmullen-scale imaging. TECHNICAL QUALITY: Adequate. COMPARISON: None. FINDINGS: Liver: The liver measures 17.3 cm. There is increased echogenicity consistent with fatty infiltration. The bile ducts are within normal limits. There is hepatic color flow. The direction of portal flow is hepatopetal. There is no demonstrated mass lesion. Gallbladder: Normal distended gallbladder. The gallbladder wall measures 3.0 mm. There is a negative sonographic Riggins's sign. There is no pericholecystic fluid. There are no gallstones. There is evidence of a 7 mm x 6 mm polyp adherent to the gallbladder wall. Common Bile Duct (C.B.D.): The common bile duct measures 4.0 mm. Pancreas: Normal size of the head, body of the pancreas. The tail portion is obscured due to overlying bowel gas. There is normal echogenicity of the pancreas. There is no demonstrated pancreatic mass or cyst. Right Kidney: Normal size of the right kidney. The right kidney measures 11 cm x 3.7 cm x 4.1 cm. Normal renal cortex. The right cortex measures 1.3 cm. There is no demonstrated renal mass or cyst. There is no right hydronephrosis. US/Liver IMPRESSION: Fatty infiltration of the liver. Small gallbladder polyp. Electronically Signed: Osito Richter, at 8:42 EDT , Service support ,
[2019-02-23 07:45] VITALS: BP 137/82; PULSE 68; RESP 16; TEMP 36.6; O2SAT 100
--- NOTE | 2019-02-23 07:53 | NURSING ---
pt down for u/s
[2019-02-23 08:32] VITALS: PULSE 68
[2019-02-23] MEDS: Pramipexole Di-HCl 0.25 MG Tablet PO (08:32)
[2019-02-23] MEDS: Metoprolol Tartrate 25 MG Tablet PO (08:32)
[2019-02-23] MEDS: Citalopram 20 MG Tablet PO (08:33)
--- NOTE | 2019-02-23 08:46 | PN_ITS ---
Subjective: Patient overnight did note that she bumped her left arm and had some bleeding from the middle finger but this is subsided and dressing was reinforced. Patient otherwise very eager for discharge and ready to transition to IV antibiotic therapy at home. Reviewed current presentation with patient and noted that upon admission she did have mildly elevated liver enzymes and these have trended up in the last 24 hours therefore pending hepatitis panel at discharge which she is to follow-up with her primary care physician notes understanding of this in addition to a liver ultrasound. Patient denies fevers, chills, nausea, emesis, abdominal pain, chest pain or dyspnea. Objective: Physical Examination: General: awake, alert, oriented x 3 and cooperative, seated upright bed, NAD. Skin: normal color, turgor, no icterus, cyanosis, LUE hand in dressing, currently reinforced following bumping it overnight. HEENT: AT/NC, EOMI, PERRLA, MMM. Lungs: CTA bilaterally, moderate effort, moderate decrease BL bases, no rales, ronchi or wheezing. Heart: Regular rate and rhythm; no gallop, rub audible. Abdomen: soft, obese, NTTP, ND, normal BS. Extremities: no cyanosis, clubbing, LUE in dressing. Neurological: patient awake, alert, oriented x 3; cognitive function intact; pupils equally reactive to light and accomodation; cranial nerves II-XII grossly normal, moving all 4 extremities although limited LUE given recent surgery, strength improving, mildly decreased. Psychiatric: affect appears normal, no acute evidence of depressive or anxiety feelings. Vitals/I&O's: Vital Signs Temp Pulse Resp BP Pulse Ox 98 F 68 16 137/82 H 100 02/23/19 07:45 02/23/19 08:32 02/23/19 07:45 02/23/19 07:45 02/23/19 07:45 Oxygen Delivery Method Room Air Weight: 210 lb 1.608 oz Body Mass Index (BMI) 37.2 Finger Stick Blood Glucose 93 Intake and Output for Last 24 Hours 02/21/19 02/22/19 02/23/19 23:59 23:59 23:59 Intake Total 3760 / 4617 4270 / 4270 250 / 250 Output Total 2500 / 3500 6400 / 6400 500 / 500 Balance 1260 / 1117 -2130 / -2130 -250 / -250 Microbiology Past 72 Hours 02/20/19 15:35 Blood Culture (Wb) - Anticubital Right Blood Culture - Preliminary No growth in 48 hours. 02/20/19 15:30 Blood Culture (Wb) - Anticubital Left Blood Culture - Preliminary No growth in 48 hours. 02/20/19 18:35 Urine Catheter - Catheter Urine Culture - Preliminary Streptococcus group B Gram positive organism Laboratory Results 02/23/19 06:15: WBC 4.7, RBC 4.66, Hgb 13.1, Hct 39.6, MCV 85.0, MCH 28.1, MCHC 33.1, RDW Std Deviation 39.2, RDW Coeff of [place] 12.7, Plt Count 170, MPV 9.7, Immature Gran % (Auto) 0.200, Neut % (Auto) 54.8, Lymph % (Auto) 34.5, [place] % (Auto) 7.2, Eos % (Auto) 2.7, Baso % (Auto) 0.6, Absolute Neuts (auto) 2.6, Absolute Lymphs (auto) 1.63, Absolute Nucleated RBC 0.00, Nucleated RBC % 0 02/23/19 06:15: Sodium 144, Potassium 3.3 L, Chloride 110 H, Carbon Dioxide 27.0, Anion Gap 7, BUN 20 H, Creatinine 0.94, Estim Creat Clear Calc 55.28, Est GFR (MDRD) Af Amer 79, Est GFR (MDRD) Non-Af 66, BUN/Creatinine Ratio 21.3 H, Glucose 116 H, Calcium 8.6, Total Bilirubin 0.30, AST 51 H, ALT 114 H, Alkaline Phosphatase 161 H, Total Protein 6.3 L, Albumin 3.0 L, Globulin 3.3, Albumi n/Globulin Ratio 0.9 Current Medications Acetaminophen (Tylenol) 650 mg PO Q6H PRN PRN PRN Reason: PAIN Last Admin: 02/22/19 23:02 Dose: 650 mg Documented by: Citalopram Hydrobromide (Celexa) 20 mg PO DAILY [facility] Last Admin: 02/23/19 08:33 Dose: 20 mg Documented by: Docusate Sodium (Colace) 100 mg PO BID [facility] Last Admin: 02/23/19 08:38 Dose: Not Given Documented by: Enoxaparin Sodium (Lovenox) 40 mg SC DAILY@0600 [facility] Last Admin: 02/23/19 04:59 Dose: 40 mg Documented by: [facility] Hydralazine HCl (Apresoline Iv) 10 mg IV Q4H PRN PRN PRN Reason: SBP > 160 Last Admin: 02/22/19 16:50 Dose: 10 mg Documented by: Vancomycin IV Pharmacy to Dose (1 ea/ Sodium Chloride) 500 mls @ 250 mls/hr IV X1 PRN; Protocol PRN Reason: Rx to Dose Sodium Chloride () 1,000 mls @ 100 mls/hr IV .Q10H [facility] Last Admin: 02/23/19 06:27 Dose: Not Given Documented by: Vancomycin HCl 750 mg/ Sodium (Chloride) 265 mls @ 250 mls/hr IV Q12H [facility] Last Admin: 02/23/19 04:58 Dose: 250 mls/hr Documented by: Meclizine HCl (Antivert) 12.5 mg PO DAILY PRN PRN PRN Reason: Vertigo Metoprolol Tartrate (Lopressor (Beta Roberto)) 25 mg PO DAILY [facility] Last Admin: 02/23/19 08:32 Dose: 25 mg Documented by: Nutritional Formula ([place] - [place] Flavor) [facility] Last Admin: 02/23/19 08:33 Dose: 1 packet Documented by: Ondansetron HCl (Zofran) 4 mg IV Q6H PRN PRN PRN Reason: NAUSEA Last Admin: 02/21/19 10:05 Dose: 4 mg Documented by: Oxycodone HCl (Oxyir) 10 mg PO Q4H PRN PRN PRN Reason: SEVERE PAIN (6-10/10) Pramipexole Dihydrochloride (Mirapex) 0.25 mg PO BID [facility] Last Admin: 02/23/19 08:32 Dose: 0.25 mg Documented by: Quetiapine Fumarate (Seroquel) 25 mg PO QHS PRN PRN Reason: SLEEP Last Admin: 02/22/19 22:58 Dose: 25 mg Documented by: Sodium Chloride () 10 - 40 ml IV UD PRN PRN Reason: SALINE FLUSH Last Admin: 02/23/19 04:59 Dose: 10 ml Documented by: Sodium Chloride () 10 - 40 ml IV UD PRN PRN Reason: SALINE FLUSH Sodium Chloride () 10 - 40 ml IV UD PRN PRN Reason: PICC FLUSH Trazodone HCl (Desyrel) 100 mg PO QHS PRN PRN PRN Reason: INSOMNIA Last Admin: 02/21/19 21:34 Dose: 100 mg Documented by: Medical Necessity - Tobacco Use Smoking Status: Former smoker Assessment/Plan All Active Problems (Last Updated 12/25/18 @ 16:06 by Jess Muro) Crushing injury of left middle finger, initial encounter (Acute) Crushing injury of left index finger, initial encounter (Acute) Injury of nail bed of finger of left hand (Acute) Finger swelling (Acute) Laceration of left middle finger without foreign body without damage to nail (Acute) Open nondisplaced fracture of distal phalanx of left index finger (Acute) Open nondisplaced fracture of distal phalanx of left middle finger (Acute) Open nondisplaced fracture of middle phalanx of left middle finger (Acute) Swelling of left hand (Resolved) Crushing injury of hand, left (Acute) Laceration of left palm (Acute) Heat exhaustion (Acute) The patient is a 58 y/o F w/ PMHx: Obesity, HTN, HLD, Depression and Anxiety who presents to the [facility] as direct admission per Dr. Peterson on 02/20/19 with history of recent crust injury to the LUE with surgical intervention 02/16/19 with closure of longitudinal laceration, reconstruction, debridement with volar immobilization splinting and distal phalanx tuft left index finger partial ostectomy for osteomyelitis secondary to poor appetite, nausea which has become intractable with emesis. (1) Recent LUE Crush Injury, Index Finger Trauma: Admitted per Dr. Peterson, recent post-op, wound RN consultation pending, dressing changes per Dr. Peterson discretion, maintained currently on IV vanc, therapies per surgery discretion, unclear if nausea, emesis potentially related to recent abx therapies. Home health therapy is currently set up with plan transition for IV antibiotic therapy at home, discharged today per Dr. Peterson. (2) Intractable Nausea, Emesis, Concurrent Elevated LFTs (unclear if chronic or acute and related to current presentation): Patient upon presentation with intractable nausea, vomiting which has since resolved. Patient had been treated with aggressive IV fluids, Zofran as well as Phenergan as needed. Urinalysis upon presentation unremarkable, CBC with no market W BC elevation, ESR unremarkable, CM notable for initial AST/ALT 53/167, alks phos 161 and CRP elevated 18.90 w/ repeat CMP with noted increased functions on 02/23/19 w/ AST/ALT 51/114, Alk phos 161. Hepatitis panel pending on discharge w/ discussion with patient to follow these results with her PCP and Liver US obtained w/ only noted fatty infiltration of the liver and a small gallbladder polyp. Encourage follow-up with primary care physician with repeat CMP per their discretion. (3) Obesity: Weight loss and lifestyle changes encouraged. (4) Hypertension: Continue home regimen including metoprolol, PRN hydralazine. (5) Anxiety and Depression: Continue home celexa, seroquel, trazodone. (6) RLS: Continue home Requip regimen. (7) DVT Prophylaxis: SCDs, lovenox. Code Visit Inpatient E&M: 20489 Subs Hosp L2
--- NOTE | 2019-02-23 11:00 | CASEMGMT ---
Addendum entered by Tonya Adhikari 02/23/19 14:57: MAT CHANDLER received call from Narcisa at [facility] that C9 forms for services was approved and faxed copy to MAT CHANDLER. MAT CHANDLER placed approved C9 on chart. Original Note: MAT CHANDLER confirmed with Narcisa at [facility] that HHC and IV ATBs were approved through [facility]. Narcisa requested additional infomation, clinicals faxed. MAT CHANDLER confirmed with [facility] and [facility] that antibiotics and HHC is scheduled to start 02/24 2000. MAT CHANDLER updated the patient and patient states understanding and will have family at home to learn IV ATBS. Dr. Peterson updated with confirmed discharge plans.
[2019-02-23] MEDS: Acetaminophen 325 MG Tablet 650 MG PO (11:43)
[2019-02-23 11:52] VITALS: BP 145/87; PULSE 68; RESP 16; TEMP 36.8; O2SAT 97
--- NOTE | 2019-02-23 14:47 | PCM.PN.SRG ---
Subjective: Postop #7 Patient is resting comfortably. Antibiotics have been arranged for home. - Physical Exam General: Alert, Oriented x3 HEENT: PERRLA, EOMI Oral: Moist Mucosa Neck: Supple Abdomen: Soft, Non-Distended Skin: Incision - left index finger nad long finger incisions are dry and intact. Mild swelling noted. Skin graft shows good adherence and 100% take. Continue splint. Neurological: Cranial nerves II-XII grossly intact Psych/Mental Status: Normal Affect, Appropriate Vital Signs Temp Pulse Resp BP Pulse Ox 98.2 F 68 16 145/87 H 97 02/23/19 11:52 02/23/19 11:52 02/23/19 11:52 02/23/19 11:52 02/23/19 11:52 Oxygen Delivery Method Room Air Weight: 210 lb 1.608 oz Body Mass Index (BMI) 37.2 Finger Stick Blood Glucose 93 Intake and Output for Last 24 Hours 02/21/19 02/22/19 02/23/19 23:59 23:59 23:59 Intake Total 3760 / 4617 4270 / 4270 750 / 750 Output Total 2500 / 3500 6400 / 6400 1850 / 1850 Balance 1260 / 1117 -2130 / -2130 -1100 / -1100 Microbiology Past 72 Hours 02/20/19 18:35 Urine Culture - Final Urine Catheter - Catheter Mixed Gram Pos & Gram Neg Org 02/20/19 15:35 Blood Culture - Preliminary Blood Culture (Wb) - Anticubital Right No growth in 48 hours. 02/20/19 15:30 Blood Culture - Preliminary Blood Culture (Wb) - Anticubital Left No growth in 48 hours. Laboratory Tests Past 24 Hrs 02/23/19 02/23/19 02/23/19 06:15 06:15 08:45 WBC 4.7 RBC 4.66 Hgb 13.1 Hct 39.6 MCV 85.0 MCH 28.1 MCHC 33.1 RDW Std Deviation 39.2 RDW Coeff of [place] 12.7 Plt Count 170 MPV 9.7 Immature Gran % (Auto) 0.200 Neut % (Auto) 54.8 Lymph % (Auto) 34.5 [place] % (Auto) 7.2 Eos % (Auto) 2.7 Baso % (Auto) 0.6 Absolute Neuts (auto) 2.6 Absolute Lymphs (auto) 1.63 Absolute Nucleated RBC 0.00 Nucleated RBC % 0 Sodium 144 Potassium 3.3 L Chloride 110 H Carbon Dioxide 27.0 Anion Gap 7 BUN 20 H Creatinine 0.94 Estim Creat Clear Calc 55.28 Est GFR (MDRD) Af Amer 79 Est GFR (MDRD) Non-Af 66 BUN/Creatinine Ratio 21.3 H Glucose 116 H Calcium 8.6 Total Bilirubin 0.30 AST 51 H ALT 114 H Alkaline Phosphatase 161 H Total Protein 6.3 L Albumin 3.0 L Globulin 3.3 Albumin/Globulin Ratio 0.9 Hepatitis A IgM Ab Pending Hepatitis A Ab Total Pending Hep Bs Antigen Pending Hep B Core Total Ab Pending Hep B Core IgM Ab Pending Medical Necessity - Tobacco Use Smoking Status: Former smoker Assessment/Plan All Active Problems (Last Updated 12/25/18 @ 16:06 by Jess Muro) Osteomyelitis of finger of left hand (Acute) Crushing injury of left middle finger, initial encounter (Acute) Crushing injury of left index finger, initial encounter (Acute) Injury of nail bed of finger of left hand (Acute) Finger swelling (Acute) Laceration of left middle finger without foreign body without damage to nail (Acute) Open nondisplaced fracture of distal phalanx of left index finger (Acute) Open nondisplaced fracture of distal phalanx of left middle finger (Acute) Open nondisplaced fracture of middle phalanx of left middle finger (Acute) Swelling of left hand (Resolved) Crushing injury of hand, left (Acute) Laceration of left palm (Acute) Heat exhaustion (Acute) 1. Crush injury left index finger and left long finger. 2. 5 cm longitudinal laceration volar radial aspect left long finger extending from the distal phalanx to just proximal to the PIP joint crease. 3. 1.5 cm laceration dorsum left long finger just proximal to the eponychial fold and extending obliquely and radial. 4. Nondisplaced open fracture left long finger involving distal phalanx and middle phalanx. 5. Nondisplaced open fracture left index finger involving distal phalanx. 6. Nail bed injury left index finger. 7. Finger swelling left hand involving long finger and index finger. 8. s/p exploration 5 cm longitudinal laceration volar radial aspect left long finger extending from the distal phalanx to just proximal to the PIP joint crease with 4.5 cm complex closure repair and FTSG reconstruction from the volar ulnar forearm (2.5 cm2) and exploration 1.5 cm laceration dorsum left long finger just proximal to the eponychial fold and extending obliquely and radial with 3.5 cm complex closure repair and excisional debridement open fracture distal phalanx tuft left long finger with partial ostectomy for osteomyelitis and treatment nondisplaced stable longitudinal open fracture middle phalanx left long finger without manipulation and with volar immobilization splinting and excisional debridement open fracture distal phalanx tuft left index finger with partial ostectomy for osteomyelitis and repair nail bed injury left index finger. 9. Osteomyelitis left index finger and left long finger. 10. Intractable nausea, improving. 11. Elevated LFT's. 12. Low Potassium. Incisions are dry and intact. Skin graft is healing with good adherence and 100% take. Fingers are mildly swollen. Can apply Bactroban ointment to the skin graft and suture lines daily. PICC line in place. Continue Vancomycin which she will need for 6 weeks because of operative cultures (02/16/19) that showed MRSE in the soft tissue left long finger and MRSE x2 in the soft tissue left index finger and Staphylococcus epidermidis in the bone left long finger and MRSE and Staphylococcus epidermidis in the bone left index finger. Hospitalist input appreciated. Infusion company and Home Health arrangements for the antibiotics and to check weekly labs while on antibiotics (CBC, CMP, ESR, CRP, Vancomycin Trough) have been finalized. Pharmacy will dose the Vancomycin. Continue splint. After discharge and after healing, will need OT for range of motion exercises, strengthening, and edema management. Discharge home today. Followup office one week. Followup PCP in one month to discuss hepatitis panel and elevated LFT's. She has pain medication at home. Encouraged patient to drink orange juice and eat bananas to help with the low potassium level, (3.3 today). Wrote scripts for Zofran for nausea (30 tabs) and a refill and for Colace for constipation (60 tabs).
[2019-02-23 14:57] VITALS: BP 134/80; PULSE 65; RESP 16; TEMP 36.7; O2SAT 100
--- NOTE | 2019-02-23 15:03 | DCINST_ITS ---
You will use the following diet at home:: No restrictions Discharge Activity: May not drive while taking narcotic pain medications., May Shower - wear plastic bag over left hand when showering. Return to work on:: 05/08/19 - tentative May shower in (days): 1 - wear plastic bag over left hand when showering. May resume sexual activity in: No Restrictions Weight Bearing Status: Weight bearing as tolerated Lifting Restrictions: no lifting with left hand. Keep extremity elevated above heart level: Left Arm Call your doctor if your incision/area has: Continuous Slow Oozing, Sudden Increased Bleeding, Increased Pain/ Swelling, Increased Redness, Foul Smelling Discharge, Swelling at the incision site Call your doctor if you observe: Fever of 101 or Higher, Coldness, Increased Pain, Shortness of breath, Chest pain, Calf discomfort, Uncontrolled pain Suture Line Care: - - apply bactroban ointment to skin graft and suture lines daily to left index finger and left long finger and donor incision left forearm. Change Dressing in (Days):: 1 - apply bactroban followed by gauze and kerlix wrap and splint with compression bertha wrap. Cleanse incision/area with: Soap & Water - at the time of the dressing change, may wash the left hand with soap and water. Additional Instructions: Patient has pain medication at home that she will use as needed for pain. Also encouraged patient to drink orange juice and eat bananas to help with the low potassium level. Allergies/Adverse Reactions: Allergies bacitracin Allergy (Verified 02/16/19 10:40) Hives latex Allergy (Verified 02/16/19 10:40) Rash povidone-iodine [From Betadine] Allergy (Verified 02/16/19 10:40) Hives soap [From Betadine] Allergy (Verified 02/16/19 10:40) Hives ciprofloxacin Adverse Reaction (Severe, Verified 02/16/19 10:40) Vomiting promethazine [From Phenergan] Adverse Reaction (Severe, Verified 02/16/19 10:40) Vomiting cephalexin monohydrate [From Keflex] Adverse Reaction (Verified 02/16/19 10:40) Nausea morphine Adverse Reaction (Verified 02/16/19 10:40) Vomiting Penicillins Adverse Reaction (Verified 02/16/19 10:40) Vomiting Medications to take at Discharge Citalopram [Celexa] 20 mg PO DAILY 07/06/15 Gabapentin [Neurontin] 800 mg PO DAILY 02/08/16 Metoprolol Tartrate [Lopressor (beta dino)] 25 mg PO DAILY 02/08/16 Pramipexole Di-HCl [Mirapex] 0.25 mg PO QHS 02/08/16 Quetiapine Fumarate [Seroquel] 25 mg PO QHS PRN 02/08/16 Meclizine HCl [Antivert] 12.5 mg PO DAILY PRN PRN 12/21/18 traZODone [Desyrel] 100 mg PO QHS PRN 02/12/19 Aspirin [Aspirin, Baby] 81 mg PO DAILY@0800 02/20/19 Gauze Bandage [Kerlix] 1 ea TP .QDAILY #30 bandage 02/22/19 Gauze Bandage [Kerlix] 4 ea TP .QDAILY #120 sponge 02/22/19 Mupirocin [Bactroban] 1 applic TOPICAL .QDAILY #5 tube 02/22/19 Vancomycin IV 750 mg IV Q12H 40 Days #80 vial 02/22/19 Docusate Sodium [Colace] 100 mg PO BID #60 cap 02/23/19 Mupirocin [Bactroban] 1 applic TOPICAL DAILY tube 02/23/19 Ondansetron [Zofran] 8 mg PO Q8H PRN PRN #30 tab 02/23/19 Potassium Chloride [Klor-Con] 20 meq PO .QDAILY #30 packet 02/23/19 The following prescriptions were given: Mupirocin [Bactroban] 1 applic TOPICAL .QDAILY #5 tube Prescription Printed Docusate Sodium [Colace] 100 mg PO BID #60 cap Prescription Printed Gauze Bandage [Kerlix] 1 ea TP .QDAILY #30 bandage Prescription Printed Gauze Bandage [Kerlix] 4 ea TP .QDAILY #120 sponge Prescription Printed Potassium Chloride [Klor-Con] 20 meq PO .QDAILY #30 packet Prescription Printed Vancomycin IV 750 mg IV Q12H 40 Days #80 vial Prescription Printed Ondansetron [Zofran] 8 mg PO Q8H PRN PRN #30 tab PRN Reason: Nausea Prescription Printed Primary Care Physician: Wendy Amaro MD [Primary Care Provider] - Please follow up with your Primary Care Physician in: one month to discuss hepatitis panel and elevated LFT's Test Results: Test results from this visit will be discussed in further detail at your follow- up appointment, if applicable. Please Follow Up With: Evan Peterson MD When: one week. call [phone] for appt. Proposed Discharge Date: 02/23/19
--- NOTE | 2019-02-23 21:43 | PCM.DC.SUM ---
Discharge Date and Diagnosis Date of Admission: 02/20/19 Date of Discharge: 02/23/19 - Primary Discharge Diagnosis Crush injury left index finger and left long finger. 5 cm longitudinal laceration volar radial aspect left long finger extending from the distal phalanx to just proximal to the PIP joint crease. 1.5 cm laceration dorsum left long finger just proximal to the eponychial fold and extending obliquely and radial. Nondisplaced open fracture left long finger involving distal phalanx and middle phalanx. Nondisplaced open fracture left index finger involving distal phalanx. Nail bed injury left index finger. Finger swelling left hand involving long finger and index finger. Osteomyelitis left index finger and left long finger. Intractable nausea, improving. Elevated LFT's. Low Potassium. Hospital Course and Treatment Imaging Results: Diagnostic Data Liver Ultrasound 02/23/19 07:05 IMPRESSION: Fatty infiltration of the liver. Small gallbladder polyp. Electronically Signed: Osito Richter, at 8:42 EDT , Service support , Consultations 02/20/19 15:00 Consult: Onc/Wound/track liner operator Routine Comment: Hospitalist Group - Dr. Tejeda. Operations: None Procedures: PICC line placement Summary of Care Provided: Patient sustained a crush injury to her left index finger and left long finger and went to surgery on 02/16/19 where she underwent exploration 5 cm longitudinal laceration volar radial aspect left long finger extending from the distal phalanx to just proximal to the PIP joint crease with 4.5 cm complex closure repair and FTSG reconstruction from the volar ulnar forearm (2.5 cm2) and exploration 1.5 cm laceration dorsum left long finger just proximal to the eponychial fold and extending obliquely and radial with 3.5 cm complex closure repair and excisional debridement open fracture distal phalanx tuft left long finger with partial ostectomy for osteomyelitis and treatment nondisplaced stable longitudinal open fracture middle phalanx left long finger without manipulation and with volar immobilization splinting and excisional debridement open fracture distal phalanx tuft left index finger with partial ostectomy for osteomyelitis and repair nail bed injury left index finger. She comes in today for admission for IV antibiotics for her operative cultures that showed MRSE in the soft tissue left long finger and MRSE x2 in the soft tissue left index finger and Staphylococcus epidermidis in the bone left long finger and MRSE and Staphylococcus epidermidis in the bone left index finger. She was initially discharged home on Clindamycin. These organisms are resistant to Clindamycin and some are resistant to Doxycycline and Bactrim DS. Levaquin is sensitive but she is allergic to Ciprofloxacin. Pathology is pending thus far. So it was recommended to the patient to be admitted for IV Vancomycin. She will need intermediate designer IV antibiotics (up to 6 weeks) and will place a PICC line. Will have the Hospitalist Group evaluate for medical management. On the first hospital day (postop #5), the skin graft dressing was changed. The skin graft shows 100% take and good adherence. Bactroban ointment was applied to the skin graft daily. The patient had trouble with intractable vomiting during her hospitalization. She responded to hydration and Zofran. Her LFT's had increased during her hospitalization. A liver ultrasound was done on 02/23/19. It showed fatty infiltration of the liver. Small gallbladder polyp. Hepatitis panel was drawn and is pending at discharge. She will followup with her PCP in a month to go over her elevated LFT's and her Hepatitis panel. Also on the day of discharge, her Potassium had decreased to 3.3. Encouraged the patient to drink orange juice and eat bananas. Will recheck the Potassium as an outpatient. On 02/22/18, her Pathology was available from her surgery on 02/16/19. 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 Clinical correlation was suggested. On the third hospital day (postop #7), the infusion company and Home Health arrangements for the antibiotics and to check weekly labs while on antibiotics (CBC, CMP, ESR, CRP, Vancomycin Trough) have been finalized. Pharmacy will dose the Vancomycin. Continue splint. After discharge and after healing, will need OT for range of motion exercises, strengthening, and edema management. Discharge home today. She will keep her left hand elevated. Followup office one week. Followup PCP in one month to discuss hepatitis panel and elevated LFT's. She has pain medication at home. Encouraged patient to drink orange juice and eat bananas to help with the low potassium level, (3.3 today). Wrote scripts for Zofran for nausea (30 tabs) and a refill and for Colace for constipation (60 tabs). - Physical Exam Vital Signs Temp Pulse Resp BP Pulse Ox 98.1 F 65 16 134/80 H 100 02/23/19 14:57 02/23/19 14:57 02/23/19 14:57 02/23/19 14:57 02/23/19 14:57 Oxygen Delivery Method Room Air Weight: 210 lb 1.608 oz Body Mass Index (BMI) 37.2 Finger Stick Blood Glucose 93 Microbiology Past 72 Hours 02/20/19 18:35 Urine Culture - Final Urine Catheter - Catheter Mixed Gram Pos & Gram Neg Org Discharge Diet: No Restrictions Discharge Activity: May not drive while taking narcotic pain medications., May Shower - wear plastic bag over left hand when showering. Return to work on:: 05/08/19 - tentative May shower in (days): 1 - wear plastic bag over left hand when showering. May resume sexual activity in: No Restrictions Weight Bearing Status: Weight bearing as tolerated Lifting Restrict to (lbs):: 0 - no lifting with left hand. Keep extremity elevated above heart level: Left Arm Call your doctor if your incision/area has: Continuous Slow Oozing, Sudden Increased Bleeding, Increased Pain/ Swelling, Increased Redness, Foul Smelling Discharge, Swelling at the incision site Call your doctor if you observe: Fever of 101 or Higher, Coldness, Increased Pain, Shortness of breath, Chest pain, Calf discomfort, Uncontrolled pain Suture Line Care: - - apply bactroban ointment to skin graft and suture lines daily to left index finger and left long finger and donor incision left forearm. Change Dressing in (Days):: 1 - apply bactroban followed by gauze and kerlix wrap and splint with compression bertha wrap. Cleanse incision/area with: Soap & Water - at the time of the dressing change, may wash the left hand with soap and water. Home Medications: Medications to take at Discharge Citalopram [Celexa] 20 mg PO DAILY 07/06/15 Gabapentin [Neurontin] 800 mg PO DAILY 02/08/16 Metoprolol Tartrate [Lopressor (beta dino)] 25 mg PO DAILY 02/08/16 Pramipexole Di-HCl [Mirapex] 0.25 mg PO QHS 02/08/16 Quetiapine Fumarate [Seroquel] 25 mg PO QHS PRN 02/08/16 Meclizine HCl [Antivert] 12.5 mg PO DAILY PRN PRN 12/21/18 traZODone [Desyrel] 100 mg PO QHS PRN 02/12/19 Aspirin [Aspirin, Baby] 81 mg PO DAILY@0800 02/20/19 Gauze Bandage [Kerlix] 1 ea TP .QDAILY #30 bandage 02/22/19 Gauze Bandage [Kerlix] 4 ea TP .QDAILY #120 sponge 02/22/19 Mupirocin [Bactroban] 1 applic TOPICAL .QDAILY #5 tube 02/22/19 Vancomycin IV 750 mg IV Q12H 40 Days #80 vial 02/22/19 Docusate Sodium [Colace] 100 mg PO BID #60 cap 02/23/19 Mupirocin [Bactroban] 1 applic TOPICAL DAILY tube 02/23/19 Ondansetron [Zofran] 8 mg PO Q8H PRN PRN #30 tab 02/23/19 Potassium Chloride [Klor-Con] 20 meq PO .QDAILY #30 packet 02/23/19 Following Prescrptions Were Given to Patient: Mupirocin [Bactroban] 1 applic TOPICAL .QDAILY #5 tube Prescription Printed Docusate Sodium [Colace] 100 mg PO BID #60 cap Prescription Printed Gauze Bandage [Kerlix] 1 ea TP .QDAILY #30 bandage Prescription Printed Gauze Bandage [Kerlix] 4 ea TP .QDAILY #120 sponge Prescription Printed Potassium Chloride [Klor-Con] 20 meq PO .QDAILY #30 packet Prescription Printed Vancomycin IV 750 mg IV Q12H 40 Days #80 vial Prescription Printed Ondansetron [Zofran] 8 mg PO Q8H PRN PRN #30 tab PRN Reason: Nausea Prescription Printed Primary Care Physician: Wendy Amaro MD [Primary Care Provider] - Please follow up with your Primary Care Physician in: one month to discuss hepatitis panel and elevated LFT's Please Follow Up With: Evan Peterson MD When: one week. call [phone] for appt. Additional Instructions: Patient has pain medication at home that she will use as needed for pain. Also encouraged patient to drink orange juice and eat bananas to help with the low potassium level. Pending Tests Upon Discharge: Home Health to check weekly labs while on Vancomycin antibiotics (CBC, CMP, ESR, CRP, Vancomycin Trough). Pharmacy will dose the Vancomycin. Disposition: Home with Home Health Minutes spent on discharge:: 35 Patient Condition:: Stable Medical Necessity - Tobacco Use Smoking Status: Former smoker Meaningful Use Info Meaningful Use Diagnoses (Choose all that apply): None applicable
[2019-02-24 04:07] LABS: HEPATITIS B SURFACE AG Negative (Negative); Hepatitis A AB, Total Negative (Negative); Hepatitis A IgM Antibody Negative (Negative); Hepatitis B Core AB IgM Negative (Negative); Hepatitis B Core Ab Total Negative (Negative); Hepatitis C Ab <0.1 s/co ratio (0.0-0.9)
[2019-02-24 13:32] LABS: Hep B Surface Antibodies Reactive (.)
== END 2019-02-23 15:26 | disposition home or self-care (01) | DRG 540 ==
PROVIDERS: Student in an Organized Health Care Education/Training Program; Admitting Provider Surgery; Family Provider Internal Medicine; PCP Internal Medicine; Referring Provider Surgery; Visit Provider Family Medicine
DX: M86.8X4 Other osteomyelitis, hand (principal); S62.661B Nondisplaced fracture of distal phalanx of left index finger, initial encounter for open fracture; S62.667B Nondisplaced fracture of distal phalanx of left little finger, initial encounter for open fracture; S62.653B Nondisplaced fracture of middle phalanx of left middle finger, initial encounter for open fracture; B95.7 Other staphylococcus as the cause of diseases classified elsewhere; I10 Essential (primary) hypertension; F32.9 Major depressive disorder, single episode, unspecified; F41.9 Anxiety disorder, unspecified; G25.81 Restless legs syndrome; E66.9 Obesity, unspecified; Z68.37 Body mass index [BMI] 37.0-37.9, adult; Z87.891 Personal history of nicotine dependence; R74.8 Abnormal levels of other serum enzymes; R11.2 Nausea with vomiting, unspecified; S67.22XA Crushing injury of left hand, initial encounter; S67.191A Crushing injury of left index finger, initial encounter; S67.193A Crushing injury of left middle finger, initial encounter; W31.9XXA Contact with unspecified machinery, initial encounter; Y99.0 Civilian activity done for income or pay
CPT/HCPCS: 36415; 36569; 76705; 80048; 80053; 80076; 80202; 80307; 81001; 83605; 85025; 85027; 85652; 86140; 86704; 86705; 86706; 86708; 86709; 86803; 87040; 87077; 87086; 87088; 87340; J7030; J7040; J7050; A4216; J2405

== ENCOUNTER 2019-03-05 11:34 | Outpatient (RCR) | payer OTHER, SELFPAY ==
[2019-02-20 13:11] VITALS: BMI 37.2
[2019-02-26 10:19] LABS: Erythrocyte Sedimentation Rate 14 mm/hr (0-30)
[2019-02-26 10:20] LABS: Hematocrit 41.4 % (37-47); Hemoglobin 13.6 g/dL (12.0-15.0); Mean Corp Hgb Conc 32.9 g/dL (32-36); Mean Corpuscular Hgb 28.5 pg (27.0-32.0); Mean Corpuscular Volume 86.6 fL (81-99); Mean Platelet Vol. 9.6 fl (6.2-12.0); Platelet Count 191 K/mm3 (150-450); RBC Distribution Width CV 12.7 % (11.6-14.6); RBC Distribution Width SD 40.6 fl (35.1-43.9); Red Blood Count 4.78 M/mm3 (4.2-5.4); White Blood Count 4.9 K/mm3 (4.4-11.0)
[2019-02-26 10:31] LABS: Vancomycin, Trough Level 11.1 ug/mL (5.0-15.0)
[2019-02-26 10:34] LABS: ALB/GLOB Ratio 0.9 RATIO (0.9-2.4); AST(SGOT) 34 U/L (15-37); Alanine Aminotransfer ALT/SGPT 88 U/L (13-56); Albumin, Serum 3.5 g/dL (3.2-5.0); Alkaline Phosphatase 151 U/L (45-117); Anion Gap 3 (5-15); BUN 17 mg/dL (7-18); BUN/Creat Ratio 19.9 RATIO (10-20); CRP 2.98 mg/L (0.0-3.0); Calcium,Total 8.8 mg/dL (8.5-10.1); Chloride 109 mmol/L (98-107); Creatinine, Serum 0.85 mg/dL (0.55-1.02); EST Glomerular Filtration Rate 73 mL/min (>60); Est Glom Filt Rate - Afr Amer 89 mL/min (>60); Globulin 3.8 g/dL (2.2-4.2); Glucose 84 mg/dL (74-106); Potassium 3.8 mmol/L (3.5-5.1); Protein, Total 7.3 g/dL (6.4-8.2); Sodium Level 139 mmol/L (136-145)
[2019-03-05 13:25] LABS: Vancomycin, Trough Level 12.5 ug/mL (5.0-15.0)
[2019-03-05 13:29] LABS: ALB/GLOB Ratio 0.9 RATIO (0.9-2.4); AST(SGOT) 196 U/L (15-37); Alanine Aminotransfer ALT/SGPT 243 U/L (13-56); Albumin, Serum 3.5 g/dL (3.2-5.0); Alkaline Phosphatase 170 U/L (45-117); Anion Gap 10 (5-15); BUN 12 mg/dL (7-18); BUN/Creat Ratio 12.8 RATIO (10-20); Calcium,Total 8.9 mg/dL (8.5-10.1); Chloride 111 mmol/L (98-107); Creatinine, Serum 0.94 mg/dL (0.55-1.02); EST Glomerular Filtration Rate 65 mL/min (>60); Est Glom Filt Rate - Afr Amer 79 mL/min (>60); Globulin 3.7 g/dL (2.2-4.2); Glucose 95 mg/dL (74-106); Protein, Total 7.2 g/dL (6.4-8.2); Sodium Level 145 mmol/L (136-145)
[2019-03-05 13:53] LABS: Erythrocyte Sedimentation Rate 11 mm/hr (0-30)
[2019-03-05 13:54] LABS: Hematocrit 41.4 % (37-47); Hemoglobin 13.6 g/dL (12.0-15.0); Mean Corp Hgb Conc 32.9 g/dL (32-36); Mean Corpuscular Hgb 28.5 pg (27.0-32.0); Mean Corpuscular Volume 86.8 fL (81-99); Mean Platelet Vol. 10.2 fl (6.2-12.0); Platelet Count 203 K/mm3 (150-450); RBC Distribution Width CV 12.8 % (11.6-14.6); RBC Distribution Width SD 40.6 fl (35.1-43.9); Red Blood Count 4.77 M/mm3 (4.2-5.4); White Blood Count 4.4 K/mm3 (4.4-11.0)
== END 2019-03-07 23:59 ==
LOC: HHLAB 11:34
PROVIDERS: Family Provider Internal Medicine; PCP Internal Medicine; Referring Provider Surgery; Visit Provider Surgery
DX: S67.191D Crushing injury of left index finger, subsequent encounter (principal); S67.193D Crushing injury of left middle finger, subsequent encounter; S61.213D Laceration without foreign body of left middle finger without damage to nail, subsequent encounter; S62.661B Nondisplaced fracture of distal phalanx of left index finger, initial encounter for open fracture; S62.663B Nondisplaced fracture of distal phalanx of left middle finger, initial encounter for open fracture; S62.653B Nondisplaced fracture of middle phalanx of left middle finger, initial encounter for open fracture; M79.89 Other specified soft tissue disorders
CPT/HCPCS: 80053; 80202; 85027; 85652; 86140

== ENCOUNTER 2019-03-12 10:31 | Outpatient (RCR) | payer OTHER, BC, SELFPAY ==
[2019-03-07 14:22] VITALS: BMI 37.2
[2019-03-12 10:50] LABS: Hematocrit 43.9 % (37-47); Hemoglobin 14.8 g/dL (12.0-15.0); Mean Corp Hgb Conc 33.7 g/dL (32-36); Mean Corpuscular Hgb 28.6 pg (27.0-32.0); Mean Corpuscular Volume 84.7 fL (81-99); Mean Platelet Vol. 9.8 fl (6.2-12.0); Platelet Count 199 K/mm3 (150-450); RBC Distribution Width CV 12.3 % (11.6-14.6); RBC Distribution Width SD 38.1 fl (35.1-43.9); Red Blood Count 5.18 M/mm3 (4.2-5.4); White Blood Count 3.9 K/mm3 (4.4-11.0)
[2019-03-12 10:55] LABS: Erythrocyte Sedimentation Rate 7 mm/hr (0-30)
[2019-03-12 11:21] LABS: Vancomycin, Trough Level 1.4 ug/mL (5.0-15.0)
[2019-03-12 11:22] LABS: AST(SGOT) 37 U/L (15-37); Alanine Aminotransfer ALT/SGPT 83 U/L (13-56); Albumin, Serum 3.6 g/dL (3.2-5.0); Alkaline Phosphatase 143 U/L (45-117); Anion Gap 8 (5-15); BUN 13 mg/dL (7-18); BUN/Creat Ratio 11.5 RATIO (10-20); Calcium,Total 9.1 mg/dL (8.5-10.1); Chloride 107 mmol/L (98-107); Creatinine, Serum 1.13 mg/dL (0.55-1.02); EST Glomerular Filtration Rate 53 mL/min (>60); Est Glom Filt Rate - Afr Amer 64 mL/min (>60); Globulin 3.7 g/dL (2.2-4.2); Glucose 85 mg/dL (74-106); Potassium 3.9 mmol/L (3.5-5.1); Protein, Total 7.3 g/dL (6.4-8.2); Sodium Level 141 mmol/L (136-145)
== END 2019-04-07 23:59 ==
LOC: HHLAB 10:31
PROVIDERS: Family Provider Internal Medicine; PCP Internal Medicine; Referring Provider Surgery; Visit Provider Surgery
DX: S67.193A Crushing injury of left middle finger, initial encounter (principal); S67.191A Crushing injury of left index finger, initial encounter; M86.9 Osteomyelitis, unspecified; B95.7 Other staphylococcus as the cause of diseases classified elsewhere; S61.313A Laceration without foreign body of left middle finger with damage to nail, initial encounter; S61.412A Laceration without foreign body of left hand, initial encounter
CPT/HCPCS: 80053; 80202; 85027; 85652

== ENCOUNTER → 2019-03-20 10:51 | Outpatient (CLI) | payer BC, SELFPAY ==
[2019-03-14 10:27] VITALS: BMI 37.2
[2019-03-20 11:39] LABS: Hematocrit 40.8 % (37-47); Hemoglobin 13.5 g/dL (12.0-15.0); Mean Corp Hgb Conc 33.1 g/dL (32-36); Mean Corpuscular Hgb 28.7 pg (27.0-32.0); Mean Corpuscular Volume 86.8 fL (81-99); Mean Platelet Vol. 9.7 fl (6.2-12.0); Platelet Count 155 K/mm3 (150-450); RBC Distribution Width CV 12.5 % (11.6-14.6); RBC Distribution Width SD 40.1 fl (35.1-43.9); White Blood Count 3.5 K/mm3 (4.4-11.0)
[2019-03-20 11:46] LABS: Erythrocyte Sedimentation Rate 7 mm/hr (0-30)
[2019-03-20 12:05] LABS: AST(SGOT) 43 U/L (15-37); Alanine Aminotransfer ALT/SGPT 201 U/L (13-56); Albumin, Serum 3.4 g/dL (3.2-5.0); Alkaline Phosphatase 135 U/L (45-117); Anion Gap 4 (5-15); BUN 15 mg/dL (7-18); BUN/Creat Ratio 16.9 RATIO (10-20); Calcium,Total 8.8 mg/dL (8.5-10.1); Chloride 112 mmol/L (98-107); Creatinine, Serum 0.88 mg/dL (0.55-1.02); EST Glomerular Filtration Rate 70 mL/min (>60); Est Glom Filt Rate - Afr Amer 85 mL/min (>60); Globulin 3.4 g/dL (2.2-4.2); Glucose 91 mg/dL (74-106); Potassium 3.8 mmol/L (3.5-5.1); Protein, Total 6.8 g/dL (6.4-8.2); Sodium Level 143 mmol/L (136-145)
== END ==
PROVIDERS: Nurse Practitioner Family; Family Provider Internal Medicine; PCP Internal Medicine; Referring Provider Surgery; Visit Provider Surgery
DX: M86.9 Osteomyelitis, unspecified (principal); S67.193A Crushing injury of left middle finger, initial encounter; S67.191A Crushing injury of left index finger, initial encounter
CPT/HCPCS: 36415; 80053; 85027; 85652

== ENCOUNTER → 2019-03-22 | Outpatient (CLI) | payer OTHER, SELFPAY ==
[2019-03-21 10:01] VITALS: BMI 37.2
--- NOTE | 2019-03-22 07:53 | CT_ITS ---
STUDY: CT ABDOMEN WITH AND WITHOUT CONTRAST REASON FOR EXAM: Female, 58 years old. Elevated liver enzymes RADIATION DOSAGE (If Supplied By Facility): CTDIvol = ( 22.04 ) mGy, DLP = ( 1290.55 ) mGycm TECHNIQUE: Transaxial images were obtained pre and post I.V. administration of 100 IV Isovue 300, and without oral contrast. Sagittal and coronal images were reconstructed. Individualized dose optimization techniques were used for this CT. COMPARISON: None. FINDINGS: The visualized lung bases are unremarkable. The visualized portions of the heart are within normal limits. Normal liver. Normal gallbladder and extrahepatic biliary system. Normal spleen. Normal pancreas. Normal bilateral adrenal glands. Normal right kidney. Normal left kidney. Normal visualized stomach. Normal small intestine. Normal colon. The appendix is visualized and appears normal. Normal abdominal aorta. Normal inferior vena cava. Normal retroperitoneum. Normal abdominal wall. Normal osseous structures. CT/Abdomen W/WO IV Contrast IMPRESSION: Normal unenhanced and enhanced CT of the abdomen. Electronically Signed: Karlos Johnson, at 17:17 EDT Tel , Service support ,
== END | disposition home or self-care (01) ==
LOC: CT 07:52
PROVIDERS: Family Provider Internal Medicine; PCP Internal Medicine; Referring Provider Nurse Practitioner Family; Visit Provider Nurse Practitioner Family
DX: M79.89 Other specified soft tissue disorders (principal); M86.9 Osteomyelitis, unspecified; R74.8 Abnormal levels of other serum enzymes; S61.213A Laceration without foreign body of left middle finger without damage to nail, initial encounter; S62.653B Nondisplaced fracture of middle phalanx of left middle finger, initial encounter for open fracture; S62.661B Nondisplaced fracture of distal phalanx of left index finger, initial encounter for open fracture; S62.663B Nondisplaced fracture of distal phalanx of left middle finger, initial encounter for open fracture; S67.191A Crushing injury of left index finger, initial encounter; S67.193A Crushing injury of left middle finger, initial encounter; S69.92XA Unspecified injury of left wrist, hand and finger(s), initial encounter
CPT/HCPCS: 74170; Q9967

== ENCOUNTER → 2019-03-28 | Outpatient (CLI) | payer BC, SELFPAY ==
[2019-03-21 10:01] VITALS: BMI 37.2
[2019-03-28 12:40] LABS: Hematocrit 42.2 % (37-47); Hemoglobin 13.8 g/dL (12.0-15.0); Mean Corp Hgb Conc 32.7 g/dL (32-36); Mean Corpuscular Hgb 28.5 pg (27.0-32.0); Mean Corpuscular Volume 87.2 fL (81-99); Platelet Count 179 K/mm3 (150-450); RBC Distribution Width CV 12.7 % (11.6-14.6); Red Blood Count 4.84 M/mm3 (4.2-5.4); White Blood Count 4.1 K/mm3 (4.4-11.0)
[2019-03-28 12:59] LABS: AST(SGOT) 38 U/L (15-37); Alanine Aminotransfer ALT/SGPT 78 U/L (13-56); Albumin, Serum 3.6 g/dL (3.2-5.0); Alkaline Phosphatase 134 U/L (45-117); Anion Gap 2 (5-15); BUN 16 mg/dL (7-18); BUN/Creat Ratio 15.5 RATIO (10-20); Chloride 112 mmol/L (98-107); Creatinine, Serum 1.03 mg/dL (0.55-1.02); EST Glomerular Filtration Rate 59 mL/min (>60); Est Glom Filt Rate - Afr Amer 71 mL/min (>60); Globulin 3.7 g/dL (2.2-4.2); Glucose 88 mg/dL (74-106); Potassium 4.4 mmol/L (3.5-5.1); Protein, Total 7.3 g/dL (6.4-8.2); Sodium Level 142 mmol/L (136-145)
== END | disposition home or self-care (01) ==
LOC: MTLAB 10:44
PROVIDERS: Family Provider Internal Medicine; PCP Internal Medicine; Referring Provider Nurse Practitioner Family; Visit Provider Nurse Practitioner Family
DX: M79.89 Other specified soft tissue disorders (principal); M86.9 Osteomyelitis, unspecified; R74.8 Abnormal levels of other serum enzymes; S61.213A Laceration without foreign body of left middle finger without damage to nail, initial encounter; S67.191A Crushing injury of left index finger, initial encounter; S67.193A Crushing injury of left middle finger, initial encounter; S69.92XA Unspecified injury of left wrist, hand and finger(s), initial encounter; T88.9XXA Complication of surgical and medical care, unspecified, initial encounter; S62.653B Nondisplaced fracture of middle phalanx of left middle finger, initial encounter for open fracture; S62.661B Nondisplaced fracture of distal phalanx of left index finger, initial encounter for open fracture
CPT/HCPCS: 36415; 80053; 85027

== ENCOUNTER → 2019-04-27 | Outpatient (CLI) | payer BC, SELFPAY ==
[2019-04-18 08:51] VITALS: BMI 37.2
[2019-04-27 13:44] LABS: AST(SGOT) 34 U/L (15-37); Alanine Aminotransfer ALT/SGPT 86 U/L (13-56); Albumin, Serum 3.5 g/dL (3.2-5.0); Alkaline Phosphatase 123 U/L (45-117); Anion Gap 9 (5-15); BUN 17 mg/dL (7-18); BUN/Creat Ratio 19.7 RATIO (10-20); Calcium,Total 8.7 mg/dL (8.5-10.1); Chloride 108 mmol/L (98-107); Creatinine, Serum 0.86 mg/dL (0.55-1.02); EST Glomerular Filtration Rate 72 mL/min (>60); Est Glom Filt Rate - Afr Amer 87 mL/min (>60); Globulin 3.6 g/dL (2.2-4.2); Glucose 83 mg/dL (74-106); Potassium 3.8 mmol/L (3.5-5.1); Protein, Total 7.1 g/dL (6.4-8.2); Sodium Level 142 mmol/L (136-145)
== END | disposition home or self-care (01) ==
LOC: MTLAB 11:09
PROVIDERS: Family Provider Internal Medicine; PCP Internal Medicine; Referring Provider Nurse Practitioner Family; Visit Provider Nurse Practitioner Family
DX: R94.5 Abnormal results of liver function studies (principal); M79.89 Other specified soft tissue disorders; S62.653B Nondisplaced fracture of middle phalanx of left middle finger, initial encounter for open fracture; S62.661B Nondisplaced fracture of distal phalanx of left index finger, initial encounter for open fracture; S62.663B Nondisplaced fracture of distal phalanx of left middle finger, initial encounter for open fracture; S67.191A Crushing injury of left index finger, initial encounter; S67.22XA Crushing injury of left hand, initial encounter
CPT/HCPCS: 36415; 80053

== ENCOUNTER → 2019-06-13 | Outpatient (CLI) | payer BC, SELFPAY ==
[2019-05-28 15:28] VITALS: BMI 37.2
[2019-06-13 17:46] LABS: AST(SGOT) 25 U/L (15-37); Alanine Aminotransfer ALT/SGPT 40 U/L (13-56); Albumin, Serum 3.8 g/dL (3.2-5.0); Alkaline Phosphatase 90 U/L (45-117); Anion Gap 7 (5-15); BUN 16 mg/dL (7-18); BUN/Creat Ratio 15.8 RATIO (10-20); Calcium,Total 8.9 mg/dL (8.5-10.1); Chloride 107 mmol/L (98-107); Creatinine, Serum 1.01 mg/dL (0.55-1.02); EST Glomerular Filtration Rate 60 mL/min (>60); Est Glom Filt Rate - Afr Amer 73 mL/min (>60); Globulin 3.8 g/dL (2.2-4.2); Glucose 92 mg/dL (74-106); Potassium 3.9 mmol/L (3.5-5.1); Protein, Total 7.6 g/dL (6.4-8.2); Sodium Level 141 mmol/L (136-145)
== END | disposition home or self-care (01) ==
LOC: MTLAB 16:12
PROVIDERS: Family Provider Internal Medicine; PCP Internal Medicine; Referring Provider Surgery; Visit Provider Surgery
DX: M79.89 Other specified soft tissue disorders (principal); M86.9 Osteomyelitis, unspecified; R94.5 Abnormal results of liver function studies; S61.213A Laceration without foreign body of left middle finger without damage to nail, initial encounter; S62.653B Nondisplaced fracture of middle phalanx of left middle finger, initial encounter for open fracture; S62.661B Nondisplaced fracture of distal phalanx of left index finger, initial encounter for open fracture; S62.663B Nondisplaced fracture of distal phalanx of left middle finger, initial encounter for open fracture; S67.191A Crushing injury of left index finger, initial encounter; S67.193A Crushing injury of left middle finger, initial encounter; S69.92XA Unspecified injury of left wrist, hand and finger(s), initial encounter
CPT/HCPCS: 36415; 80053

== ENCOUNTER 2019-07-03 15:30 | Outpatient (RCR) | payer OTHER, SELFPAY ==
[2019-03-21 10:01] VITALS: BMI 37.2
--- NOTE | 2019-04-17 10:05 | HP.OTEVAL_ITS ---
Patient's Visit Information MAKI KOLB is a 58 year old F, referred to Occupational Therapy by HARSHAL Chaney, with a diagnosis of left hand crush injury. Date of Evaluation: 04/02/19 Occupational Therapist: EVA Santizo/Ce, CHT - Subjective Subjective: This 58 year old female was seen for OT eval with dx of left hand crush injury. pt is employed at [employer], pt states this crush injury that happened on February 12 2019 while at work. pt underwent sx on 02/16/19 and stuggled with infection. pt states she has been struggling with ROM and use of her hand with her ADLs and IADLS. - ADLs Dressing: Bra, Button shirt, Pants, Socks, Shoes, Necktie Fasteners: Tie shoes, Buttons, Zippers, Snaps, H[place], Belt Eating: Use silverware, Cut food, Drink from glass Bathing: Handle washcloth & soap, Squeeze shampoo bottle Toileting: Manage clothing Grooming: drapery cutter machine, Curling iron, Squeeze toothpaste on Kitchen: Chop with knife, Peel fruits & vegetables, Open jars, Open bottle caps, Ziplock bags, Lift gallon of milk, Pour from pitcher, Lift saucepan, Take dish out of oven, Load/unload economic specialist Household: Sweep/mop, Laundry Miscellaneous: Handle money (change), Hold change, Take things out of wallet, Function in drive through window - Pain left hand 1 Pain Intensity Range: 2 - ROM ROM Comments: left IF MCP 0/60 PIP +15/15 DIP -10/35. left MF MCP 0/63 PIP +5/10 DIP -15/20. 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 Left: 31.75 - Quick DASH-Disab of Arm,Shoulder& Hand Quick DASH Score: 91.6650 - Goals Goal:: PT will demo an increase in coverage specialist strength by 20# to increase independent with basic occupations of daily living to return pt to OF by D/C. Pt will demo an increase in lateral and tripod pinch by 2# to increase pts independent with opening baggies, containers at OF by D/C. Goal:: Pt will demo the ability to form a composite fist to return to performing BADLs and IADLS at [facility] by d/c. Goal:: Pt will report pain no greater than 1/10 with use of affected hand with BADLs and IADLs by d/c. Goal:: Pt will demo the ability to form a composite fist to hold and receive 10 coins without dropping coins/ and coin manipulation/money mtg. tasks by D/C. pt will demo a reduction in left handed 9-hole peg test to less than 25 sec. or less by d/c Goal:: Pt will demo understanding of scar mtg. by end of 2nd session to increase tissue extensibility to limit scar adhesions and allow full tendons function by d/c. - Rehabilitation General Assessment: she underwent exploration 5 cm longitudinal laceration volar radial aspect left long finger extending from the distal phalanx to just proximal to the PIP joint crease with 4.5 cm complex closure repair and FTSG reconstruction from the volar ulnar forearm (2.5 cm2) and exploration 1.5 cm laceration dorsum left long finger just proximal to the eponychial fold and extending obliquely and radial with 3.5 cm complex closure repair and excisional debridement open fracture distal phalanx tuft left long finger with partial ostectomy for osteomyelitis and treatment nondisplaced stable longitudinal open fracture middle phalanx left long finger without manipulation and with volar immobilization splinting and excisional debridement open fracture distal phalanx tuft left index finger with partial ostectomy for osteomyelitis and repair nail bed injury left index finger. pt is currently 7 weeeks the above procedure. Pt is demo with healed incisions but limited ROM of IF and MF- pt is currently using thumb and RF to manipulte fasteners. pt pain, limited ROM and decline in pts functional strength limit her with ADLS and IADLS. Pt would benefit from skilled OT services 2-3x week for 8 weeks to challenge pts ROM, strength and return to pts PLOF. Today therapist ed. pt and PROM, AROM and blocking ex to gain ROM, pt aslo ed. 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 Rehabilitation Potential: Good - Anticipated Interventions Anticipated Interventions: A/AAROM/PROM, Strengthening, Edema Control, Scar Care, Triggerpoint Release, Desensitization, Sensory Retraining, Wound Care, Modalities, Orthoses, Joint Protection/Energy Conservation, Ergonomic Education, Fine Motor Coord/Marino - Visit Plan Frequency: 2-3x /Week Duration: 2 Months TEXT: Thank you for the opportunity to evaluate your patient. For Medicare and Medicare HMO plans, please review the plan of care and approve it. It will need to be FAXED BACK to us at [phone] for Medicare purposes. Please let me know if there are questions or concerns regarding this plan of care. Physician Signature: Date:
--- NOTE | 2019-07-03 16:00 | HP.OTDCSUM ---
HP - OT D/C Summary It has been my pleasure to treat MAKI KOLB under orders from HARSHAL Chaney, for the diagnosis of left hand crush injury for a total of 7 visit(s). Please see the following information for a summary of their discharge status. - Overall Improvement % Improvement: 85 - Objective Objective/Function: pt demo with 65* PIP flex prior to ex. following 78* PIP flex. left senior procurement manager strength 55# - Goals Patient Goals: Regain Mobility, Regain Strength, Decrease Pain, Return to Work, Decrease Swelling/Stiffness, Improve Fine Motor Skills, Use Hand/Wrist/Arm Normally Again, Increase ROM, Be More Independent in ADLS, Decrease Sensitivity Goal:: PT will demo an increase in senior procurement manager strength by 20# to increase independent with basic occupations of daily living to return pt to PLOF by D/C. Pt will demo an increase in lateral and tripod pinch by 2# to increase pts independent with opening baggies, containers at PLOF by D/C. Goal:: Pt will demo the ability to form a composite fist to return to performing BADLs and IADLS at PLOF by d/c. Goal:: Pt will report pain no greater than 1/10 with use of affected hand with BADLs and IADLs by d/c. Goal:: Pt will demo the ability to form a composite fist to hold and receive 10 coins without dropping coins/ and coin manipulation/money mtg. tasks by D/C. pt will demo a reduction in left handed 9-hole peg test to less than 25 sec. or less by d/c Goal:: Pt will demo understanding of scar mtg. by end of 2nd session to increase tissue extensibility to limit scar adhesions and allow full tendons function by d/c. - Plan Plan: D/C with t-band - D/C Information Discharge Comments: Pt has met goals in OT and is to cont. with her HEP to cont to make gains in her ROM and strength-pt demo understanding of her HEP If there are questions or concerns regarding this patient's occupational therapy, please fell free to call me at [phone]. Thank you for the referral of this patient. Sincerely, Vonnie Goel, OTR/L, CHT
== END 2019-07-03 19:00 | disposition home or self-care (01) ==
LOC: OT 15:30
PROVIDERS: Family Provider Internal Medicine; PCP Internal Medicine; Referring Provider Nurse Practitioner Family; Visit Provider Nurse Practitioner Family
DX: M86.9 Osteomyelitis, unspecified (principal); S67.193D Crushing injury of left middle finger, subsequent encounter; S67.191D Crushing injury of left index finger, subsequent encounter; S69.92XD Unspecified injury of left wrist, hand and finger(s), subsequent encounter; M79.89 Other specified soft tissue disorders; S61.213D Laceration without foreign body of left middle finger without damage to nail, subsequent encounter; S62.661D Nondisplaced fracture of distal phalanx of left index finger, subsequent encounter for fracture with routine healing; S62.663D Nondisplaced fracture of distal phalanx of left middle finger, subsequent encounter for fracture with routine healing; S62.653D Nondisplaced fracture of middle phalanx of left middle finger, subsequent encounter for fracture with routine healing; S67.22XD Crushing injury of left hand, subsequent encounter
CPT/HCPCS: 97110; 97140; 97166; 97530; 97763

== ENCOUNTER 2019-09-04 11:02 | Emergency (ER) | payer OTHER, SELFPAY ==
[2019-06-28 16:15] VITALS: BMI 37.2
[2019-09-04 11:03] VITALS: BP 152/76; PULSE 52; RESP 18; TEMP 36.6; O2SAT 98; BMI 40.6
--- NOTE | 2019-09-04 11:33 | RAD_ITS ---
STUDY: X-RAY CHEST REASON FOR EXAM: Female, 59 years old. CHEST PAIN. TECHNIQUE: Single AP portable view of the chest. COMPARISON: Comparison is made with prior study dated July 06, 2015. FINDINGS: EKG electrodes are seen. The lungs are clear and expanded. There is no demonstrated pleural abnormality. There is borderline cardiomegaly. Normal mediastinum and zonia. Normal visualized pulmonary arteries. There is atherosclerotic tortuosity of the aortic arch and descending thoracic aorta. There are diffuse degenerative changes of the visualized thoracic spine. Normal visualized ribs, clavicles, and shoulders. There is no demonstrated abnormality of the visualized soft tissue structures of the upper abdomen. RAD/Chest 1 View (Portable) IMPRESSION: Borderline cardiomegaly. No acute abnormality is seen. Electronically Signed: Osito Richter, at 12:37 EST , Service support ,
--- NOTE | 2019-09-04 11:33 | EKG12_ITS ---
Test Reason : CP Blood Pressure : / mmHG Vent. Rate : 058 BPM Atrial Rate : 058 BPM P-R Int : 152 ms QRS Dur : 096 ms QT Int : 494 ms P-R-T Axes : 043 006 008 degrees QTc Int : 484 ms Sinus bradycardia with occasional Premature ventricular complexes Prolonged QT Abnormal ECG Confirmed by ANABELL STOKES ([id number]), editorial project manager ROSALIND PERALES ([id number]) on 09/06/2019 10:21:40 AM Referred By: KARINE/PEDRO Confirmed By:ANABELL STOKES
--- NOTE | 2019-09-04 11:36 | ED.VIS.GEN ---
History of Present Illness Chief Complaint: Chest Pain Narrative: Patient presents with chest pain that started earlier today, she gets episode lasting a few seconds up to 30 seconds which are sharp and stabbing. She also has discomfort the last 1 second or less that feel strange. She has no back pain no tearing sensation. She has no shortness of breath she has no recent travel history. No recent fever chills or myalgias. No cough or congestion. Past Medical History - Allergies and Home Meds Allergies/Adverse Reactions: Allergies bacitracin Allergy (Verified 09/04/19 11:03) Hives latex Allergy (Verified 09/04/19 11:03) Rash povidone-iodine [From Betadine] Allergy (Verified 09/04/19 11:03) Hives soap [From Betadine] Allergy (Verified 09/04/19 11:03) Hives ciprofloxacin Adverse Reaction (Severe, Verified 09/04/19 11:03) Vomiting promethazine [From Phenergan] Adverse Reaction (Severe, Verified 09/04/19 11:03) Vomiting cephalexin monohydrate [From Keflex] Adverse Reaction (Verified 09/04/19 11:03) Nausea morphine Adverse Reaction (Verified 09/04/19 11:03) Vomiting Penicillins Adverse Reaction (Verified 09/04/19 11:03) Vomiting Primary Care Physician: Wendy Amaro MD [Primary Care Provider] - Past Medical History: - - Hypertension. She does not have cholesterol problems she does not have diabetes Smoking Status: Former smoker Review of Systems All systems negative except as indicated General: Denies: Fever Eyes: Denies: Visual changes - bilaterally ENT: Denies: Sore throat Cardiovascular: Reports: Chest pain, Palpitations Respiratory: Reports: Paroxysmal nocturnal dyspnea. Denies: Dyspnea, Cough Gastrointestinal: Reports: Nausea. Denies: Abdominal pain, Vomiting Musculoskeletal: Denies: Myalgias Skin: Denies: Rash Neurological: Denies: Headache, Weakness Psych: Denies: Anxiety Hematologic: Denies: Easy bruising Physical Exam Vital Signs/Narrative: Vital Signs Temp Pulse Resp BP Pulse Ox 09/04/19 11:03 98 F 52 L 18 152/76 H 98 General: Well nourished, Well developed Head: Normocephalic Eyes: Perrl ENT: Moist mucous membranes Neck: Supple Cardiovascular: - - Somewhat irregular, however the irregularity corresponds to multiple PVCs that I see on the monitor. Respiratory: No distress, CTA bilaterally Abdomen: Soft, Nontender Back: Nontender, Normal Inspection Extremities: Nontender, No edema Skin: Normal color, No rash Neurological: Alert, Normal Strength, Normal Sensation Psychological: Normal affect Diagnostic/Tx/Re-eval - Rhythm Strip Rhythm Strip: Sinus Rhythm Rate: 58 Ectopy: None - EKG Initial EKG Interpretation: - - Danny rhythm with a rate of 58. Normal AL interval. Normal QTc interval. No ischemic changes. Multiple PVCs seen. Interpreted by emergency doctor - Medical Decision Making Patient has a normal emergency department work-up, EKG and rhythm strip are consistent with PVCs, her heart score is a 3, I believe she is stable for discharge she is on metoprolol at home and I will not change any medications. She can follow-up with cardiology otherwise she will be discharged in stable condition if her symptoms worsen she needs to return. ED Disposition - Plan for ED Patient[facility] Diagnosis: Chest pain, PVC (premature ventricular contraction) Instructions: CHEST PAIN, Uncertain Cause Referrals: Wendy Amaro MD [Primary Care Provider] - 3-5 Days Jose Finley MD [STAFF PHYSICIAN] - 3-5 Days
[2019-09-04] MEDS: Aspirin 81 MG TAB.CHEW 324 MG PO (11:45)
[2019-09-04 11:47] VITALS: O2SAT 98
[2019-09-04 11:58] LABS: Absolute Lymphocyte Count 1.39 X10^3/uL (0.83-4.51); Absolute Neutrophil Count 1.7 X10^3/uL (2.0-7.7); Basophil# 0.01 X10^3/uL; Basophil% 0.3 % (0-1); Eosinophil# 0.02 X10^3/uL; Eosinophils% 0.6 % (0-5); Hematocrit 41.7 % (37-47); Hemoglobin 14.1 g/dL (12.0-15.0); Lymphocyte # 1.39 X10^3/ul (4.0); Lymphocyte % 41.7 % (19-41); Mean Corp Hgb Conc 33.8 g/dL (32-36); Mean Corpuscular Volume 85.8 fL (81-99); Mean Platelet Vol. 9.8 fl (6.2-12.0); Monocyte# 0.22 X10^3/uL; Monocyte% 6.6 % (0-10); NRBC Flagged by Analyzer 0 % (0-5); Neutrophil # 1.68 X10^3/uL (2.7-7.7); Neutrophil % 50.5 % (47-70); Platelet Count 168 K/mm3 (150-450); RBC Distribution Width CV 13.1 % (11.6-14.6); Red Blood Count 4.86 M/mm3 (4.2-5.4); White Blood Count 3.3 K/mm3 (4.4-11.0)
[2019-09-04 12:08] LABS: Anion Gap 5 (5-15); BUN 17 mg/dL (7-18); BUN/Creat Ratio 17.5 RATIO (10-20); Calcium,Total 8.8 mg/dL (8.5-10.1); Chloride 111 mmol/L (98-107); Creatinine, Serum 0.97 mg/dL (0.55-1.02); EST Glomerular Filtration Rate 63 mL/min (>60); Est Glom Filt Rate - Afr Amer 76 mL/min (>60); Estimated Creatinine Clearance 52.93 ml/min; Glucose 86 mg/dL (74-106); Potassium 3.8 mmol/L (3.5-5.1); Sodium Level 143 mmol/L (136-145)
[2019-09-04 12:22] VITALS: BP 157/67; PULSE 58; RESP 16; O2SAT 96
[2019-09-04 13:20] VITALS: BP 162/89; PULSE 64; RESP 16; O2SAT 100
== END 2019-09-04 13:31 | disposition home or self-care (01) ==
PROVIDERS: Emergency Provider Emergency Medicine; PCP Internal Medicine
DX: I49.3 Ventricular premature depolarization (principal); R07.9 Chest pain, unspecified; I10 Essential (primary) hypertension; Z87.891 Personal history of nicotine dependence; Z79.82 Long term (current) use of aspirin; Z79.899 Other long term (current) drug therapy
CPT/HCPCS: 71045; 80048; 84484; 85025; 93005; 99285; A4216

== ENCOUNTER 2019-10-10 13:02 | Emergency (ER) | payer OTHER, SELFPAY ==
[2019-09-27 15:50] VITALS: BMI 40.6
[2019-10-10 13:04] VITALS: BP 158/77; PULSE 50; RESP 16; TEMP 36.6; O2SAT 97; BMI 38.9
[2019-10-10 13:15] VITALS: BP 161/84; PULSE 55; RESP 16; O2SAT 99
--- NOTE | 2019-10-10 13:15 | EKG12_ITS ---
Test Reason : CP Blood Pressure : / mmHG Vent. Rate : 051 BPM Atrial Rate : 051 BPM P-R Int : 154 ms QRS Dur : 098 ms QT Int : 494 ms P-R-T Axes : 050 007 003 degrees QTc Int : 455 ms Sinus bradycardia with occasional Premature ventricular complexes Nonspecific ST abnormality Abnormal ECG Confirmed by AKSHAT STOUT, AYLA ([id number]), material expeditor LENA QUEZADA ([id number]) on 10/12/2019 12:02:46 PM Referred By: AZIZA Confirmed By:ANDRIA ODEN MD
[2019-10-10 14:31] LABS: Absolute Lymphocyte Count 1.57 X10^3/uL (0.83-4.51); Absolute Neutrophil Count 2.4 X10^3/uL (2.0-7.7); Basophil# 0.02 X10^3/uL; Basophil% 0.5 % (0-1); Eosinophil# 0.07 X10^3/uL; Eosinophils% 1.6 % (0-5); Hematocrit 44.6 % (37-47); Hemoglobin 14.9 g/dL (12.0-15.0); Lymphocyte # 1.57 X10^3/ul (4.0); Lymphocyte % 36.5 % (19-41); Mean Corp Hgb Conc 33.4 g/dL (32-36); Mean Corpuscular Hgb 28.8 pg (27.0-32.0); Mean Corpuscular Volume 86.3 fL (81-99); Monocyte# 0.27 X10^3/uL; Monocyte% 6.3 % (0-10); NRBC Flagged by Analyzer 0 % (0-5); Neutrophil # 2.36 X10^3/uL (2.7-7.7); Neutrophil % 54.9 % (47-70); Platelet Count 190 K/mm3 (150-450); RBC Distribution Width CV 12.6 % (11.6-14.6); RBC Distribution Width SD 39.4 fl (35.1-43.9); Red Blood Count 5.17 M/mm3 (4.2-5.4); White Blood Count 4.3 K/mm3 (4.4-11.0)
[2019-10-10] MEDS: Ipratropium/Albuterol Sulfate 3 ML AMPUL.NEB INHALATION (14:45)
[2019-10-10 14:46] VITALS: PULSE 51; RESP 18
[2019-10-10 14:49] LABS: AST(SGOT) 24 U/L (15-37); Alanine Aminotransfer ALT/SGPT 30 U/L (13-56); Albumin, Serum 3.9 g/dL (3.2-5.0); Alkaline Phosphatase 91 U/L (45-117); Anion Gap 5 (5-15); BUN 12 mg/dL (7-18); BUN/Creat Ratio 11.4 RATIO (10-20); Calcium,Total 9.3 mg/dL (8.5-10.1); Chloride 108 mmol/L (98-107); Creatinine, Serum 1.05 mg/dL (0.55-1.02); EST Glomerular Filtration Rate 57 mL/min (>60); Est Glom Filt Rate - Afr Amer 69 mL/min (>60); Globulin 3.9 g/dL (2.2-4.2); Glucose 92 mg/dL (74-106); Potassium 3.8 mmol/L (3.5-5.1); Protein, Total 7.8 g/dL (6.4-8.2); Sodium Level 141 mmol/L (136-145)
[2019-10-10] MEDS: Acetaminophen 500 MG Tablet 1000 MG PO (15:07)
[2019-10-10] MEDS: 0.9% Normal Saline 1,000 ML 1000 ML IV (15:08)
[2019-10-10 15:09] VITALS: PULSE 58; RESP 17; O2SAT 97
[2019-10-10 15:09] LABS: Mucous, Urine 0 SEEN /hpf (<or=2+); Red Blood Cells-Urine 0 SEEN /hpf (0-5)
[2019-10-10 15:14] LABS: Color, Urine Yellow (Yellow); Glucose, Dipstick Normal (Normal); Ketone-Dipstick Negative (Negative); Leukocyte Esterase-Dipstick 100 /ul (Negative); Nitrite-Dipstick Positive (Negative); Occult Blood-Urine 10 /ul (Negative); Protein-Dipstick Negative (Negative); Urine Bilirubin Dipstick Negative (Negative); Urine Clarity Sl. Cloudy (Clear); Urine Urobilinogen Normal (Normal)
[2019-10-10] MEDS: Ondansetron 4 MG/2 ML Vial IV (15:22)
--- NOTE | 2019-10-10 15:25 | RAD_ITS ---
STUDY: X-RAY CHEST REASON FOR EXAM: Female, 59 years old. Chest pain with high blood pressure TECHNIQUE: AP and lateral views of the chest. COMPARISON: Comparison is made with prior examination dated September 04, 2019. FINDINGS: EKG electrodes are seen. The lungs are clear and expanded. There is no demonstrated pleural abnormality. Normal size heart. Normal mediastinum and zonia. Normal visualized pulmonary arteries. There is atherosclerotic tortuosity of the aortic arch and descending thoracic aorta. There are mild degenerative changes of the visualized thoracic spine. Normal visualized ribs, clavicles, and shoulders. There is no demonstrated abnormality of the visualized soft tissue structures of the upper abdomen. RAD/Chest PA and Lateral IMPRESSION: No acute abnormality is seen. Electronically Signed: Osito Richter, at 15:45 EST , Service support ,
[2019-10-10 15:56] LABS: White Blood Cells 0-5 SEEN /hpf (0-5)
[2019-10-10 15:57] LABS: Bacteria 4+ /hpf (None Seen); Squamous Epithelial Cells - UA 0-5 SEEN /hpf (5-10)
--- NOTE | 2019-10-10 16:15 | ED.DCSUM_ITS ---
- ER Visit Summary Date of Service: 10/10/19 Chief Complaint: Shortness of breath, dizziness, nausea History of Present Illness: The patient is a 59 F who presents with shortness of breath, dizziness, and nausea that has been waxing and waning over the past month. Patient states her legs feel weak at times. Patient states that her blood pressure spikes at times. Patient states she took her blood pressure monitor with her to work today and her blood pressure is 188/111 at noon today. Patient states she chronically feels tired despite getting 8 hours of sleep every night. Patient admits to subjective chills. Patient admits to some shortness of breath. Patient admits to some palpitations. Patient states she knows she has a history of PVCs. Physical Examination: Vital signs are stable. Patient is afebrile. Patient is in no acute distress. Oral mucosa is pink and moist. Neck is supple. Trachea is midline. There is no JVD noted. Heart was regular rate and rhythm. Lungs are clear and equal bilaterally. Abdomen is soft. Bowel sounds are normal. There is no tenderness. There is no rebound or guarding noted. Skin is warm dry. Cranial nerves II through XII are intact. There are no focal motor or sensory deficits noted. Test Results: KG showed normal sinus rhythm with occasional PVCs. Rate is 51. There are no acute ST or T wave changes. This was unchanged compared to previous EKG dated 09/04/2019. CBC and comprehensive metabolic profile was obtained and was within normal limits. Urinalysis showed leukocyte esterase of 100 but 0-5 white blood cells. There were positive nitrates and 4+ bacteria. Urine culture was obtained. Troponin was normal. PA and lateral chest x-ray was obtained. There is no acute cardiopulmonary process. This was interpreted by the radiologist and myself. Emergency Department Course and Treatment: Patient was given a DuoNeb aerosol here. Patient was given a dose of Zofran. Patient was given Tylenol for her headache. Patient was advised of her findings. Patient was instructed to follow-up with her primary care physician in 5 to 7 days. Patient was also given a referral for cardiology. Patient understood and was agreeable with the plan. All questions were answered. Disposition: Discharge home Impression: 1. Dyspnea 2. Premature ventricular contractions This note was generated with [employer] software. It may contain incorrect words, spelling, and punctuation that were not noted in review of the chart prior to signing ED Disposition - Plan for ED Patient: Disposition: Home or Assisted Living Diagnosis: Dyspnea, PVCs (premature ventricular contractions) Instructions: Premature Ventricular Contractions, ED Dyspnea Referrals: Pranav Terry MD [Primary Care Provider] - 3-5 Days Jose Finley MD [STAFF PHYSICIAN] - 5-7 Days
[2019-10-10 16:33] VITALS: BP 161/87; PULSE 59; RESP 18; O2SAT 96
--- NOTE | 2019-10-10 16:34 | ED.RN ---
PT A+OX3, PT GIVEN WRITTEN AND VERBAL DISCHARGE INSTRUCTIONS AND HOME GOING PAPERWORK. PT EDUCATED TO FOLLOW UP WITH PCP, AND MATTRESS INSPECTOR. PT IV D/C AND COVERED WITH 2X2 GAUZE AND PAPER TAPE. PT DRESSES SELF AND AMBULATES OUT OF DEPT BY SELF.
== END 2019-10-10 16:36 | disposition home or self-care (01) ==
PROVIDERS: Emergency Provider Emergency Medicine; PCP Family Medicine
DX: I49.3 Ventricular premature depolarization (principal); R06.00 Dyspnea, unspecified
CPT/HCPCS: 71046; 80053; 81001; 84484; 85025; 87086; 87088; 87186; 87804; 93005; 94640; 96361; 96374; 99285; J7030; A4216; J2405

== ENCOUNTER → 2019-10-16 | Outpatient (CLI) | payer OTHER, SELFPAY ==
[2019-10-16 14:02] VITALS: BMI 38.9
[2019-10-16 17:17] LABS: BNP,B-Type NATRIURETIC PEPTIDE 41.2 pg/mL (0-100)
[2019-10-16 17:28] LABS: Free T3 2.8 pg/mL (2.18-3.98); T4 Free Direct 0.99 ng/dL (0.76-1.46); Thyroid Stim Hormone (TSH) 1.98 uIU/mL (0.358-3.74)
== END | disposition home or self-care (01) ==
LOC: LAB 15:49
PROVIDERS: PCP Family Medicine; Referring Provider Physician Assistant Medical; Visit Provider Physician Assistant Medical
DX: R00.2 Palpitations (principal); R07.9 Chest pain, unspecified; R06.09 Other forms of dyspnea
CPT/HCPCS: 36415; 83880; 84439; 84443; 84481

== ENCOUNTER → 2019-11-07 | Outpatient (CLI) | payer OTHER, SELFPAY ==
[2019-10-16 14:02] VITALS: BMI 38.9
--- NOTE | 2019-11-07 06:09 | ECHOD_ITS ---
Reason For Study: DYSPNEA Procedure This was a 2D Doppler, Color Flow transthoracic echocardiogram. The study was technically difficult. Contrast injection was performed. Exam performed in department. Left Ventricle Normal LV size. Left ventricular systolic function is normal. The estimated ejection fraction is 65 %. No evidence for diastolic dysfunction. No regional wall motion abnormalities noted. Right Ventricle Normal RV size. Normal systolic function. Atria The left atrium is mildly enlarged. Normal right atrium. No doppler evidence for ASD. Mitral Valve There is no mitral annular calcification. Normal mitral valve. Mild (1+) mitral valve insufficiency. Tricuspid Valve Normal tricuspid valve. Mild tricuspid valve insufficiency. Right ventricular systolic pressure estimated to be 36 mmHg. Aortic Valve Trisinus/trileaflet aortic valve. Normal aortic valve. Pulmonic Valve The pulmonic valve is not well visualized. Great Vessels Normal sized aortic root. Pericardium/Pleural No pericardial effusion. Medication Diluted definity 4.ml given slow IV push to enhance endocardial definition. MMode/2D Measurements & Calculations LVIDd: 4.9 cm IVSd: 0.86 cm Ao root diam: 3.7 cm LVIDs: 3.1 cm LVPWd: 0.83 cm RVDd: 3.5 cm FS: 36.5 % LAV(MOD-bp): 63.5 ml EDV(MOD-sp4): 127.8 ml EDV(MOD-sp2): 99.3 ml LAV(MOD-bp) Indexed: 31.1 ml/m2 ESV(MOD-sp4): 28.4 ml EF(MOD-sp2): 71.2 % LAV(MOD-sp2): 52.4 ml EF(MOD-sp4): 77.8 % LAV(MOD-sp4): 63.8 ml SV(MOD-sp4): 99.4 ml SV(MOD-sp2): 70.7 ml LA A4 area: 22.0 cm2 LA dimension(2D): 4.4 cm RA A4 area: 18.1 cm2 Time Measurements MV dec time: 0.26 sec Doppler Measurements & Calculations MV E max johnie: 75.6 cm/sec Lat Peak E' Johnie: 10.7 cm/sec Med Peak E' Johnie: 7.5 cm/sec MV A max johnie: 62.7 cm/sec E/E' lat: 7.1 E/E' med: 10.1 MV E/A: 1.2 Ao V2 max: 147.9 cm/sec LV V1 max: 114.8 cm/sec PA V2 max: 98.2 cm/sec Ao max P.8 mmHg LV V1 max P.3 mmHg PI end-d johnie: 97.6 cm/sec TR max johnie: 285.6 cm/sec TR max P.6 mmHg Interpretation Summary The study was technically difficult. Contrast injection was performed. Left ventricular systolic function is normal. The estimated ejection fraction is 65 %. The left atrium is mildly enlarged. Mild (1+) mitral valve insufficiency. Mild tricuspid valve insufficiency. Right ventricular systolic pressure estimated to be 36 mmHg. No evidence for diastolic dysfunction. Ordering Physician: Vonnie Fuentes/Jose Finley Referring Physician: ROBERT PATEL Performed By: Apollo ROD RVT, Carrie and Student
--- NOTE | 2019-11-07 10:11 | STRESSREP_ITS ---
Stress Test Report Date: 11-07-2019 Procedure: Pharmacologic stress nuclear imaging study Indications: Chest pain; palpitations; syncope Consent: Per the patient Procedure: The patient underwent pharmacologic (Regadenoson) evaluation with a peak heart rate of 70 beats per minute (42 %predicted maximal heart rate) and a peak blood pressure of 120/72 mmHg. The baseline ECG demonstrated sinus bradycardia. The peak pharmacologic ECG demonstrated no obvious ECG changes. There were occasional PVCs during pharmacologic infusion and recovery. There was no complaint of chest discomfort during pharmacologic infusion or recovery. The examination was discontinued secondary to completion of protocol. Impression: 1. Pharmacologic (Regadenoson) evaluation 2. Peak pharmacologic ECG with no obvious ECG changes. 3. There were occasional PVCs during pharmacologic infusion and recovery. 4. Nuclear images pending Myocardial perfusion imaging study: Technique: The patient was injected with 14.6 millicuries of technetium 99m Cardiolite and subsequently rest SPECT Cardiolite nuclear imaging was obtained in the horizontal long, vertical long, and short axis views. The patient underwent pharmacologic (Regadenoson) evaluation with a peak heart rate of 70 beats per minute (42 % percent predicted maximal heart rate) and a peak blood pressure of 120/72 mmHg. The patient was injected with 44.5 millicuries of technetium 99m Cardiolite and subsequently stress SPECT Cardiolite nuclear imaging was obtained in the horizontal long, vertical long, and short axis views. A gated Cardiolite study at peak stress was not obtained. Interpretation: Rest and stress SPECT Cardiolite nuclear imaging status post realignment, normalization, and attenuation correction demonstrate relative uniform tracer uptake and myocardial perfusion appearing within normal limits. There is end systolic thickening and brightening. The gated Cardiolite study demonstrates myocardial thickening and inward wall motion. Impression: 1. Rest and stress SPECT Cardiolite nuclear imaging demonstrate relative uniform tracer uptake and myocardial perfusion appearing within normal limits. 2. The gated Cardiolite study not obtained. This note was generated with [employer] software. It may contain incorrect words, spelling, and punctuation that were not noted in checking the note before signing.
== END | disposition home or self-care (01) ==
LOC: CVS 06:09
PROVIDERS: PCP Family Medicine; Referring Provider Physician Assistant Medical; Visit Provider Physician Assistant Medical
DX: R06.09 Other forms of dyspnea (principal); R07.9 Chest pain, unspecified; R00.2 Palpitations
CPT/HCPCS: 78452; 93017; 93306; A9500; Q9957; A4216; C8929; J2785